=== PATIENT | female | born 1980 | race Caucasian/White ===

== ENCOUNTER 2017-09-09 17:12 | Inpatient (IN) | payer MEDICARE, MEDICAID ==
[~2017-09-09] VITALS: Ht 167.6 cm; Wt 129.0 kg
[~2017-09-09 17:12] MED LIST: naloxone 2mg/2ml inj ONE
[2017-09-09 18:53] LABS: BASOPHILS # (AUTO) 0.1 X10'3 (0-0.2); BASOPHILS % (AUTO) 0.4 % (0-1); EOSINOPHILS # (AUTO) 0.3 X10'3 (0-0.9); EOSINOPHILS % (AUTO) 1.4 % (0-6); HEMATOCRIT 27.8 % (35.0-45.0); HEMOGLOBIN 8.8 g/dl (12.0-16.0); LYMPHOCYTES # (AUTO) 1.7 X10'3 (1.1-4.8); LYMPHOCYTES % (AUTO) 7.7 % (21-51); MEAN CORPUSCULAR HEMOGLOBIN 28.8 PG (27.0-31.0); MEAN CORPUSCULAR HGB CONC 31.6 % (33.0-36.5); MEAN CORPUSCULAR VOLUME 91.1 FL (78-98); MEAN PLATELET VOLUME 6.7 FL (7.4-10.4); MONOCYTES % (AUTO) 4.3 % (2-12); NEUTROPHILS % (AUTO) 86.2 % (42-75); PLATELET COUNT 523 X10'3 (140-440); RED BLOOD COUNT 3.05 X10'6 (4.20-5.60); RED CELL DISTRIBUTION WIDTH 17.8 % (11.5-14.5)
[2017-09-09 19:02] LABS: INR 1.3 INR; PARTIAL THROMBOPLASTIN TIME 34 SECONDS (22-32); PROTHROMBIN TIME 13.3 SECONDS (9.0-12.0)
[2017-09-09 19:07] LABS: ALANINE AMINOTRANSFERASE 22 U/L (12-78); ALBUMIN 1.9 G/DL (3.4-5.0); ALBUMIN/GLOBULIN RATIO 0.3 (1.1-1.5); ALKALINE PHOSPHATASE 464 IU/L (46-116); ANION GAP 10 (8-16); ASPARTATE AMINO TRANSFERASE 14 U/L (10-37); BILIRUBIN,TOTAL 0.4 MG/DL (0.1-1.0); BLOOD UREA NITROGEN 69 MG/DL (7-18); BUN/CREATININE RATIO 10.4 (6.6-38.0); CALCIUM 8.9 MG/DL (8.5-10.1); CHLORIDE 92 MMOL/L (99-107); CREATININE 6.61 MG/DL (0.40-0.90); GLUCOSE 138 MG/DL (70-104); POTASSIUM 5.2 MMOL/L (3.5-5.1); SODIUM 130 MMOL/L (135-145); TOTAL PROTEIN 7.6 G/DL (6.4-8.2); eGFR 7 ML/MIN
[2017-09-09] MEDS ORDERED: ASPI81TA52 PO (19:35)
[2017-09-09] MEDS ORDERED: NYST1000 PO (19:35)
[2017-09-09] MEDS ORDERED: METO-467 PO (19:35)
[2017-09-09] MEDS ORDERED: CALC667T5 PO (19:35)
[2017-09-09] MEDS ORDERED: FOLI0.4T2 PO (19:35)
[2017-09-09] MEDS ORDERED: METO10TA8 PO (19:35)
[2017-09-09] MEDS ORDERED: HEPA500014 SQ (19:35)
[2017-09-09] MEDS ORDERED: LAMO200T2 PO (19:35)
[2017-09-09] MEDS ORDERED: SERT25TA PO (19:40)
[2017-09-09] MEDS ORDERED: SERT100T PO (19:40)
[2017-09-09] MEDS ORDERED: LYR75C PO (19:40)
[2017-09-09] MEDS ORDERED: TORS100T15 PO (19:40)
[2017-09-09] MEDS ORDERED: VALS40TA2 PO (19:53)
[2017-09-09] MEDS ORDERED: INSU100I8 SQ (19:53)
[2017-09-09] MEDS ORDERED: INSU100V9 SQ (19:53)
[2017-09-09] MEDS ORDERED: acetaminophen 325mg tablet PO PRN (20:10)
[2017-09-09] MEDS ORDERED: mag hydrox/Alum hydrox/simeth 30ml oral suspension PO PRN (20:10)
[2017-09-09] MEDS ORDERED: ondansetron/PF 4mg/2ml inj IV PRN (20:10)
[2017-09-09] MEDS ORDERED: magnesium hydroxide 30ml (MOM) UD suspension PO PRN (20:10)
[2017-09-09] MEDS ORDERED: HYDROcodone/acetaminophen 5mg/325mg tablet PO PRN (20:35)
[2017-09-09 20:52] LABS: CREATINE KINASE 20 U/L (26-192)
[2017-09-09 21:14] LABS: HEMOGLOBIN A1C 7.8 % (4.5-6.2)
[2017-09-09 22:15] VITALS: BP 158/66
[2017-09-09 23:00] VITALS: BP_SYST 170; BP_DIAS 83; BP_DIAS 86
[2017-09-10] MEDS: calcium acetate 667mg (PhosLO) capsule PO SCH ×4 (00:44→17:05)
[2017-09-10 03:00] VITALS: BP 139/72
[2017-09-10 04:59] LABS: BASOPHILS % (AUTO) 0.3 % (0-1); EOSINOPHILS % (AUTO) 0.2 % (0-6); HEMATOCRIT 23.2 % (35.0-45.0); HEMOGLOBIN 7.4 g/dl (12.0-16.0); LYMPHOCYTES # (AUTO) 1.3 X10'3 (1.1-4.8); LYMPHOCYTES % (AUTO) 7.2 % (21-51); MEAN CORPUSCULAR HEMOGLOBIN 28.2 PG (27.0-31.0); MEAN CORPUSCULAR HGB CONC 31.8 % (33.0-36.5); MEAN CORPUSCULAR VOLUME 88.6 FL (78-98); MONOCYTES # (AUTO) 0.8 X10'3 (0-0.9); MONOCYTES % (AUTO) 4.3 % (2-12); NEUTROPHILS # (AUTO) 15.3 X10'3 (1.8-7.7); PLATELET COUNT 457 X10'3 (140-440); RED BLOOD COUNT 2.61 X10'6 (4.20-5.60); WHITE BLOOD COUNT 17.4 X10'3 (4.5-11.0)
[2017-09-10 05:16] LABS: INR 1.6 INR; PROTHROMBIN TIME 15.9 SECONDS (9.0-12.0)
[2017-09-10 05:22] LABS: % IRON SATURATION 13 % (11-46); IRON 14 UG/DL (49-151); TOTAL IRON BINDING CAPACITY 110 UG/DL (259-388)
[2017-09-10 05:29] LABS: ALBUMIN 1.5 G/DL (3.4-5.0); ANION GAP 14 (8-16); BLOOD UREA NITROGEN 74 MG/DL (7-18); BUN/CREATININE RATIO 11.3 (6.6-38.0); CALCIUM 7.8 MG/DL (8.5-10.1); CHLORIDE 93 MMOL/L (99-107); CREATININE 6.57 MG/DL (0.40-0.90); GLUCOSE 99 MG/DL (70-104); MAGNESIUM 2.4 MG/DL (1.5-2.4); PHOSPHORUS 7.8 MG/DL (2.3-4.5); POTASSIUM 4.7 MMOL/L (3.5-5.1); SODIUM 134 MMOL/L (135-145); TOTAL CARBON DIOXIDE 27.3 MMOL/L (24-32); eGFR 7 ML/MIN
[2017-09-10 06:00] VITALS: BP 140/52
[2017-09-10] MEDS ORDERED: heparin, porcine 5000 units/ml vial SQ SCH (08:00)
[2017-09-10] MEDS ORDERED: metoprolol tartrate 50mg tablet PO SCH (08:00)
[2017-09-10] MEDS ORDERED: furosemide 40mg tablet PO SCH (08:00)
[2017-09-10] MEDS: nystatin 500,000 unit/5ML UD oral suspension PO SCH ×4 (08:05→20:27)
[2017-09-10] MEDS: folic acid 0.4mg tablet PO SCH (08:05)
[2017-09-10] MEDS: HYDROcodone/acetaminophen 10/325mg tab PO PRN (08:05)
[2017-09-10] MEDS: ampicillin inj 1 GM in normal saline 100ml IV soln 100 ML IV SCH ×2 (08:06→20:26)
[2017-09-10] MEDS: aspirin 81mg tablet.DR PO SCH (08:07)
[2017-09-10] MEDS: meropenem inj 1 GM in normal saline 100ml IV soln 100 ML IV SCH (08:07)
[2017-09-10] MEDS: metolazone 2.5mg tablet PO SCH (08:07)
[2017-09-10] MEDS: valsartan 80mg tablet PO SCH (08:09)
[2017-09-10] MEDS ORDERED: normal saline 1000ml 250 ML IV PRN (09:02)
[2017-09-10] MEDS ORDERED: LIDOcaine 1% (10mg/ml) 2ml vial SQ ONE (09:05)
[2017-09-10] MEDS ORDERED: heparin 1,000 units/ml 10ml inj IV ONE (09:05)
[2017-09-10] MEDS ORDERED: epoetin 20,000 units/ml inj IV ONE (09:05)
[2017-09-10 10:58] LABS: ANISOCYTOSIS 2+; PLATELET ESTIMATE INCREASED; POLYCHROMASIA FEW; STOMATOCYTES 1+; TOTAL CELLS COUNTED 100
[2017-09-10 11:00] VITALS: BP 134/42
[2017-09-10] MEDS ORDERED: CADD PCA waste documentation MC PRN (12:55)
[2017-09-10] MEDS ORDERED: naloxone 0.4 mg/ml inj IV PRN (12:55)
[2017-09-10] MEDS ORDERED: SODIUM THIOSULFATE 12.5 GM/50 ML IV SCH (14:20)
[2017-09-10 15:00] VITALS: BP 145/49
[2017-09-10] MEDS: HYDROmorphone/NS 1 mg/ml CADD 50 ML IV SCH ×6 (15:00→23:00)
[2017-09-10] MEDS ORDERED: NORMAL SALINE IV SCH (15:15)
[2017-09-10] MEDS ORDERED: SODIUM THIOSULFATE IV SCH (15:15)
[2017-09-10] MEDS: furosemide 10 MG/1 ML 10ml inj IV SCH ×2 (15:46→15:48)
[2017-09-10 16:19] LABS: FERRITIN 2014 NG/ML (8-252)
[2017-09-10 19:00] VITALS: BP 137/60
[2017-09-10] MEDS: metoprolol tartrate 12.5mg (1/2 tablet) PO SCH (20:26)
[2017-09-10] MEDS: lactobacillus rhamnosus 10,000 MMU CELLS/CAPSULE PO SCH (20:26)
[2017-09-10] MEDS: lamoTRIgine 100mg tablet PO SCH (20:27)
[2017-09-10] MEDS: sertraline 25mg tablet PO SCH (20:27)
[2017-09-10] MEDS: iron polysaccharide complex 150mg capsule PO SCH (20:52)
[2017-09-10] MEDS ORDERED: QUEtiapine 25mg tablet PO SCH (21:00)
[2017-09-10] MEDS: insulin glargine (Lantus) pen - multi-dose SQ SCH (21:01)
[2017-09-10 23:00] VITALS: BP 114/60
[2017-09-11] VITALS (22 sets, daily range): BP systolic 65–176; BP diastolic 30–89
[2017-09-11] MEDS: HYDROmorphone/NS 1 mg/ml CADD 50 ML IV SCH (01:00)
[2017-09-11] MEDS: furosemide 10 MG/1 ML 10ml inj IV SCH ×3 (01:24→15:08)
[2017-09-11] MEDS ORDERED: propofol 1000mg/100ml bottle 100 ML IV ONE (03:14)
[2017-09-11] MEDS ORDERED: ipratropium/albuterol 3ml nebule NEB PRN (03:20)
[2017-09-11] MEDS ORDERED: etomidate 2mg/ml inj. IV ONE (03:25)
[2017-09-11] MEDS ORDERED: rocuronium 10mg/ml inj IV ONE ×2 (03:25→08:00)
[2017-09-11 04:56] LABS: ABG HCO3 26.7 mmol/L (22.0-26.0); ABG OXYGEN SATURATION 98.6 % (95-98); ABG PCO2 (T) 40.4 mmHg (32.0-45.0); ABG PH (T) 7.433 (7.350-7.450); ALLEN'S TEST Positive; FCOHb 0.8 % (0.5-1.5); FMetHb 0.1 % (0.3-1.12); FO2Hb 97.7 % (94-100); MINUTE VOLUME 8 L/min; PATIENT TEMPERATURE 35.9; PEEP 5 cm H2O; RESPIRATORY RATE 18 b/min; RESPIRATORY RATE (OBSERVED) 18 b/min; TIDAL VOLUME 450 mL; TOTAL HEMOGLOBIN 8.4 G/dl (12.0-16.0)
[2017-09-11] MEDS: propofol 1000mg/100ml bottle 100 ML IV PRN ×2 (07:01→22:33)
[2017-09-11] MEDS ORDERED: etomidate 2mg/ml inj. ONE (08:00)
[2017-09-11] MEDS: folic acid 0.4mg tablet PO SCH ×2 (08:00→08:05)
[2017-09-11] MEDS: aspirin 81mg tablet.DR PO SCH (08:02)
[2017-09-11] MEDS: calcium acetate 667mg (PhosLO) capsule PO SCH ×3 (08:02→17:12)
[2017-09-11] MEDS: metoprolol tartrate 12.5mg (1/2 tablet) PO SCH ×2 (08:02→20:58)
[2017-09-11] MEDS: lactobacillus rhamnosus 10,000 MMU CELLS/CAPSULE PO SCH ×2 (08:03→20:58)
[2017-09-11] MEDS: iron polysaccharide complex 150mg capsule PO SCH ×2 (08:03→20:59)
[2017-09-11] MEDS: valsartan 80mg tablet PO SCH (08:04)
[2017-09-11] MEDS: metolazone 2.5mg tablet PO SCH (08:04)
[2017-09-11] MEDS: nystatin 500,000 unit/5ML UD oral suspension PO SCH ×4 (08:04→21:04)
[2017-09-11] MEDS: famotidine 10mg/ml inj IV SCH ×2 (08:05→20:59)
[2017-09-11] MEDS: meropenem inj 1 GM in normal saline 100ml IV soln 100 ML IV SCH (08:08)
[2017-09-11] MEDS: ampicillin inj 1 GM in normal saline 100ml IV soln 100 ML IV SCH (08:09)
[2017-09-11 08:20] LABS: PROTHROMBIN TIME 20.2 SECONDS (9.0-12.0)
[2017-09-11 08:35] LABS: BASOPHILS % (AUTO) 0.1 % (0-1); EOSINOPHILS % (AUTO) 0.1 % (0-6); HEMATOCRIT 26.4 % (35.0-45.0); HEMOGLOBIN 8.6 g/dl (12.0-16.0); LYMPHOCYTES # (AUTO) 1.3 X10'3 (1.1-4.8); LYMPHOCYTES % (AUTO) 6.1 % (21-51); MEAN CORPUSCULAR HEMOGLOBIN 29.3 PG (27.0-31.0); MEAN CORPUSCULAR HGB CONC 32.6 % (33.0-36.5); MEAN CORPUSCULAR VOLUME 89.8 FL (78-98); MEAN PLATELET VOLUME 7.1 FL (7.4-10.4); MONOCYTES # (AUTO) 0.8 X10'3 (0-0.9); MONOCYTES % (AUTO) 3.6 % (2-12); NEUTROPHILS # (AUTO) 18.8 X10'3 (1.8-7.7); NEUTROPHILS % (AUTO) 90.1 % (42-75); PLATELET COUNT 424 X10'3 (140-440); RED BLOOD COUNT 2.94 X10'6 (4.20-5.60); RED CELL DISTRIBUTION WIDTH 16.4 % (11.5-14.5); WHITE BLOOD COUNT 20.9 X10'3 (4.5-11.0)
[2017-09-11] MEDS ORDERED: heparin 1,000 units/ml 10ml inj IV ONE (09:55)
[2017-09-11] MEDS ORDERED: LIDOcaine 1% (10mg/ml) 2ml vial SQ ONE (09:55)
[2017-09-11] MEDS ORDERED: epoetin 20,000 units/ml inj IV ONE (09:55)
[2017-09-11] MEDS ORDERED: albumin (human) 25% 100ml IV 100 ML IV PRN (09:55)
[2017-09-11 10:57] LABS: ALBUMIN 1.4 G/DL (3.4-5.0); ALBUMIN/GLOBULIN RATIO 0.3 (1.1-1.5); ALKALINE PHOSPHATASE 490 IU/L (46-116); ANION GAP 11 (8-16); BILIRUBIN,TOTAL 0.5 MG/DL (0.1-1.0); BLOOD UREA NITROGEN 46 MG/DL (7-18); BUN/CREATININE RATIO 10.6 (6.6-38.0); CALCIUM 8.1 MG/DL (8.5-10.1); CHLORIDE 97 MMOL/L (99-107); CREATININE 4.35 MG/DL (0.40-0.90); GLUCOSE 138 MG/DL (70-104); MAGNESIUM 2.1 MG/DL (1.5-2.4); PHOSPHORUS 5.4 MG/DL (2.3-4.5); POTASSIUM 4.4 MMOL/L (3.5-5.1); SODIUM 136 MMOL/L (135-145); TOTAL PROTEIN 6.2 G/DL (6.4-8.2); eGFR 11 ML/MIN
[2017-09-11 11:12] LABS: ALANINE AMINOTRANSFERASE 1527 U/L (12-78); ASPARTATE AMINO TRANSFERASE 3346 U/L (10-37)
[2017-09-11] MEDS: NORMAL SALINE IV SCH (12:25)
[2017-09-11] MEDS: SODIUM THIOSULFATE IV SCH (12:25)
[2017-09-11] MEDS: HYDROcodone/acetaminophen 10/325mg tab PO PRN (17:12)
[2017-09-11] MEDS: sertraline 25mg tablet PO SCH (20:58)
[2017-09-11] MEDS: lamoTRIgine 100mg tablet PO SCH (20:58)
[2017-09-11] MEDS: insulin glargine (Lantus) pen - multi-dose SQ SCH (21:00)
[2017-09-12] VITALS (24 sets, daily range): BP systolic 85–118; BP diastolic 45–65
[2017-09-12] MEDS: furosemide 10 MG/1 ML 10ml inj IV SCH ×3 (00:34→16:22)
[2017-09-12] MEDS: HYDROcodone/acetaminophen 10/325mg tab PO PRN (05:31)
[2017-09-12 05:52] LABS: BASOPHILS # (AUTO) 0.1 X10'3 (0-0.2); BASOPHILS % (AUTO) 0.4 % (0-1); EOSINOPHILS # (AUTO) 0.4 X10'3 (0-0.9); EOSINOPHILS % (AUTO) 1.9 % (0-6); HEMATOCRIT 22.8 % (35.0-45.0); HEMOGLOBIN 7.4 g/dl (12.0-16.0); LYMPHOCYTES # (AUTO) 2.5 X10'3 (1.1-4.8); LYMPHOCYTES % (AUTO) 12.3 % (21-51); MEAN CORPUSCULAR HEMOGLOBIN 28.3 PG (27.0-31.0); MEAN CORPUSCULAR HGB CONC 32.6 % (33.0-36.5); MEAN CORPUSCULAR VOLUME 86.9 FL (78-98); MEAN PLATELET VOLUME 7.2 FL (7.4-10.4); MONOCYTES # (AUTO) 0.4 X10'3 (0-0.9); MONOCYTES % (AUTO) 1.8 % (2-12); NEUTROPHILS # (AUTO) 16.7 X10'3 (1.8-7.7); NEUTROPHILS % (AUTO) 83.6 % (42-75); PLATELET COUNT 420 X10'3 (140-440); RED BLOOD COUNT 2.62 X10'6 (4.20-5.60); RED CELL DISTRIBUTION WIDTH 17.1 % (11.5-14.5)
[2017-09-12 05:56] LABS: ABG BASE EXCESS 3.2 mmol/L (-2.0-3.0); ABG HCO3 26.5 mmol/L (22.0-26.0); ABG OXYGEN SATURATION 97.6 % (95-98); ABG PCO2 (T) 34.6 mmHg (32.0-45.0); ABG PH (T) 7.501 (7.350-7.450); ABG PO2 (T) 99.8 mmHg (83-108); ALLEN'S TEST Positive; FCOHb 0.3 % (0.5-1.5); FMetHb 0.2 % (0.3-1.12); FO2Hb 97.1 % (94-100); MINUTE VOLUME 9 L/min; PATIENT TEMPERATURE 36.7; PEEP 5 cm H2O; RESPIRATORY RATE 18 b/min; RESPIRATORY RATE (OBSERVED) 18 b/min; TIDAL VOLUME 450 mL; TOTAL HEMOGLOBIN 8.2 G/dl (12.0-16.0)
[2017-09-12 05:56] LABS: PROTHROMBIN TIME 19.8 SECONDS (9.0-12.0)
[2017-09-12 06:23] LABS: ALBUMIN 1.2 G/DL (3.4-5.0); ANION GAP 14 (8-16); BLOOD UREA NITROGEN 28 MG/DL (7-18); BUN/CREATININE RATIO 9.4 (6.6-38.0); CALCIUM 7.9 MG/DL (8.5-10.1); CHLORIDE 100 MMOL/L (99-107); CREATININE 2.98 MG/DL (0.40-0.90); GLUCOSE 88 MG/DL (70-104); MAGNESIUM 1.7 MG/DL (1.5-2.4); PHOSPHORUS 2.4 MG/DL (2.3-4.5); POTASSIUM 3.2 MMOL/L (3.5-5.1); SODIUM 140 MMOL/L (135-145); TOTAL CARBON DIOXIDE 26.4 MMOL/L (24-32); eGFR 18 ML/MIN
[2017-09-12] MEDS: aspirin 81mg tablet.DR PO SCH (07:35)
[2017-09-12] MEDS: folic acid 0.4mg tablet PO SCH (07:36)
[2017-09-12] MEDS: metoprolol tartrate 12.5mg (1/2 tablet) PO SCH ×2 (07:36→20:58)
[2017-09-12] MEDS: calcium acetate 667mg (PhosLO) capsule PO SCH ×3 (07:36→17:24)
[2017-09-12] MEDS: nystatin 500,000 unit/5ML UD oral suspension PO SCH ×4 (07:36→20:58)
[2017-09-12] MEDS: famotidine 10mg/ml inj IV SCH ×2 (07:37→20:57)
[2017-09-12] MEDS: mineral oil/petrolatum ophthal oint EACHEYE SCH ×3 (07:37→20:00)
[2017-09-12] MEDS: meropenem inj 500 MG in normal saline 100ml IV soln 100 ML IV SCH (07:37)
[2017-09-12] MEDS: lactobacillus rhamnosus 10,000 MMU CELLS/CAPSULE PO SCH ×2 (07:53→20:57)
[2017-09-12] MEDS: metolazone 2.5mg tablet PO SCH (07:53)
[2017-09-12] MEDS: valsartan 80mg tablet PO SCH (07:53)
[2017-09-12] MEDS: iron polysaccharide complex 150mg capsule PO SCH ×2 (07:59→20:57)
[2017-09-12] MEDS ORDERED: naloxone 0.4 mg/ml inj IV PRN (08:40)
[2017-09-12] MEDS ORDERED: CADD PCA waste documentation MC PRN (08:40)
[2017-09-12] MEDS ORDERED: racepinephrine 11.25mg/0.5ml nebule NEB PRN (08:40)
[2017-09-12] MEDS ORDERED: ipratropium/albuterol 3ml nebule NEB PRN (08:40)
[2017-09-12] MEDS: ipratropium/albuterol 3ml nebule NEB SCH ×4 (09:00→20:50)
[2017-09-12] MEDS ORDERED: SODIUM THIOSULFATE IV SCH (10:00)
[2017-09-12] MEDS ORDERED: NORMAL SALINE IV SCH (10:00)
[2017-09-12] MEDS: HYDROmorphone/NS 1 mg/ml CADD 50 ML IV SCH ×8 (11:12→23:00)
[2017-09-12] MEDS: sertraline 25mg tablet PO SCH (20:57)
[2017-09-12] MEDS: lamoTRIgine 100mg tablet PO SCH (20:57)
[2017-09-12] MEDS: insulin glargine (Lantus) pen - multi-dose SQ SCH (21:00)
[2017-09-13] VITALS (21 sets, daily range): BP systolic 82–141; BP diastolic 48–72
[2017-09-13] MEDS: furosemide 10 MG/1 ML 10ml inj IV SCH ×3 (00:59→18:37)
[2017-09-13] MEDS: HYDROmorphone/NS 1 mg/ml CADD 50 ML IV SCH ×12 (01:00→23:00)
[2017-09-13] MEDS: mineral oil/petrolatum ophthal oint EACHEYE SCH (02:00)
[2017-09-13] MEDS: ipratropium/albuterol 3ml nebule NEB SCH ×4 (02:57→20:25)
[2017-09-13 05:41] LABS: BASOPHILS # (AUTO) 0.1 X10'3 (0-0.2); BASOPHILS % (AUTO) 0.4 % (0-1); EOSINOPHILS # (AUTO) 0.4 X10'3 (0-0.9); EOSINOPHILS % (AUTO) 2.2 % (0-6); HEMATOCRIT 22.1 % (35.0-45.0); LYMPHOCYTES # (AUTO) 1.8 X10'3 (1.1-4.8); LYMPHOCYTES % (AUTO) 10.7 % (21-51); MEAN CORPUSCULAR HEMOGLOBIN 28.2 PG (27.0-31.0); MEAN CORPUSCULAR HGB CONC 31.8 % (33.0-36.5); MEAN CORPUSCULAR VOLUME 88.4 FL (78-98); MEAN PLATELET VOLUME 6.9 FL (7.4-10.4); MONOCYTES # (AUTO) 0.8 X10'3 (0-0.9); MONOCYTES % (AUTO) 4.6 % (2-12); NEUTROPHILS # (AUTO) 13.5 X10'3 (1.8-7.7); NEUTROPHILS % (AUTO) 82.1 % (42-75); PLATELET COUNT 384 X10'3 (140-440); RED CELL DISTRIBUTION WIDTH 17.2 % (11.5-14.5); WHITE BLOOD COUNT 16.5 X10'3 (4.5-11.0)
[2017-09-13 05:45] LABS: INR 1.6 INR
[2017-09-13 06:24] LABS: ALBUMIN 1.3 G/DL (3.4-5.0); ANION GAP 14 (8-16); BLOOD UREA NITROGEN 35 MG/DL (7-18); BUN/CREATININE RATIO 9.3 (6.6-38.0); CALCIUM 7.8 MG/DL (8.5-10.1); CHLORIDE 96 MMOL/L (99-107); CREATININE 3.76 MG/DL (0.40-0.90); GLUCOSE 106 MG/DL (70-104); MAGNESIUM 1.8 MG/DL (1.5-2.4); PHOSPHORUS 3.8 MG/DL (2.3-4.5); POTASSIUM 3.7 MMOL/L (3.5-5.1); SODIUM 137 MMOL/L (135-145); TOTAL CARBON DIOXIDE 27.2 MMOL/L (24-32); eGFR 13 ML/MIN
[2017-09-13] MEDS ORDERED: phytonadione inj. 5 MG in normal saline 100ml IV soln 99.5 ML IV ONE (08:00)
[2017-09-13] MEDS: metoprolol tartrate 12.5mg (1/2 tablet) PO SCH ×2 (08:00→20:59)
[2017-09-13] MEDS: nystatin 500,000 unit/5ML UD oral suspension PO SCH ×4 (08:15→21:01)
[2017-09-13] MEDS: famotidine 10mg/ml inj IV SCH (08:16)
[2017-09-13] MEDS: calcium acetate 667mg (PhosLO) capsule PO SCH ×3 (08:17→18:37)
[2017-09-13] MEDS: metolazone 2.5mg tablet PO SCH (08:17)
[2017-09-13] MEDS: lactobacillus rhamnosus 10,000 MMU CELLS/CAPSULE PO SCH ×2 (08:17→20:59)
[2017-09-13] MEDS: meropenem inj 500 MG in normal saline 100ml IV soln 100 ML IV SCH (08:17)
[2017-09-13] MEDS: iron polysaccharide complex 150mg capsule PO SCH ×2 (08:17→20:59)
[2017-09-13] MEDS: aspirin 81mg tablet.DR PO SCH (08:17)
[2017-09-13] MEDS: folic acid 0.4mg tablet PO SCH (08:17)
[2017-09-13 11:08] LABS: HBSAG SCREEN Negative (Negative)
[2017-09-13] MEDS: famotidine/PF 10 mg/ml inj IV SCH (20:59)
[2017-09-13] MEDS: insulin glargine (Lantus) pen - multi-dose SQ SCH (21:00)
[2017-09-13] MEDS: sertraline 25mg tablet PO SCH (21:01)
[2017-09-13] MEDS: lamoTRIgine 100mg tablet PO SCH (21:01)
[2017-09-13] MEDS ORDERED: benzocaine/menthol oral lozeng 1 EACH BOX MM PRN (22:45)
[2017-09-14] VITALS (23 sets, daily range): BP systolic 95–161; BP diastolic 46–69
[2017-09-14] MEDS: furosemide 10 MG/1 ML 10ml inj IV SCH ×4 (00:34→23:33)
[2017-09-14] MEDS: HYDROmorphone/NS 1 mg/ml CADD 50 ML IV SCH ×15 (01:00→23:00)
[2017-09-14] MEDS: ipratropium/albuterol 3ml nebule NEB SCH ×4 (02:25→20:20)
[2017-09-14] MEDS ORDERED: magnesium hydroxide 30ml (MOM) UD suspension PO ONE (04:40)
[2017-09-14 04:58] LABS: INR 1.3 INR; PROTHROMBIN TIME 13.3 SECONDS (9.0-12.0)
[2017-09-14 05:05] LABS: BASOPHILS # (AUTO) 0.1 X10'3 (0-0.2); BASOPHILS % (AUTO) 0.4 % (0-1); EOSINOPHILS # (AUTO) 0.2 X10'3 (0-0.9); EOSINOPHILS % (AUTO) 1.6 % (0-6); HEMOGLOBIN 7.1 g/dl (12.0-16.0); LYMPHOCYTES # (AUTO) 1.7 X10'3 (1.1-4.8); LYMPHOCYTES % (AUTO) 10.9 % (21-51); MEAN CORPUSCULAR HEMOGLOBIN 28.6 PG (27.0-31.0); MEAN CORPUSCULAR HGB CONC 32.6 % (33.0-36.5); MEAN CORPUSCULAR VOLUME 87.7 FL (78-98); MEAN PLATELET VOLUME 7.2 FL (7.4-10.4); MONOCYTES # (AUTO) 0.9 X10'3 (0-0.9); MONOCYTES % (AUTO) 6.1 % (2-12); NEUTROPHILS # (AUTO) 12.3 X10'3 (1.8-7.7); PLATELET COUNT 356 X10'3 (140-440); RED BLOOD COUNT 2.48 X10'6 (4.20-5.60); RED CELL DISTRIBUTION WIDTH 17.1 % (11.5-14.5); WHITE BLOOD COUNT 15.2 X10'3 (4.5-11.0)
[2017-09-14 05:07] LABS: HEMATOCRIT 21.8 % (35.0-45.0)
[2017-09-14 05:08] LABS: ALANINE AMINOTRANSFERASE 416 U/L (12-78); ALBUMIN 1.4 G/DL (3.4-5.0); ALBUMIN/GLOBULIN RATIO 0.3 (1.1-1.5); ALKALINE PHOSPHATASE 460 IU/L (46-116); ANION GAP 13 (8-16); ASPARTATE AMINO TRANSFERASE 70 U/L (10-37); BILIRUBIN,TOTAL 0.6 MG/DL (0.1-1.0); BLOOD UREA NITROGEN 44 MG/DL (7-18); BUN/CREATININE RATIO 9.9 (6.6-38.0); CALCIUM 7.5 MG/DL (8.5-10.1); CHLORIDE 92 MMOL/L (99-107); CREATININE 4.45 MG/DL (0.40-0.90); GLUCOSE 112 MG/DL (70-104); PHOSPHORUS 4.4 MG/DL (2.3-4.5); POTASSIUM 4.5 MMOL/L (3.5-5.1); SODIUM 131 MMOL/L (135-145); TOTAL CARBON DIOXIDE 25.8 MMOL/L (24-32); TOTAL PROTEIN 5.9 G/DL (6.4-8.2); eGFR 11 ML/MIN
[2017-09-14] MEDS: lactobacillus rhamnosus 10,000 MMU CELLS/CAPSULE PO SCH ×2 (07:52→19:42)
[2017-09-14] MEDS: famotidine/PF 10 mg/ml inj IV SCH (07:52)
[2017-09-14] MEDS: folic acid 0.4mg tablet PO SCH (07:52)
[2017-09-14] MEDS: aspirin 81mg tablet.DR PO SCH (07:52)
[2017-09-14] MEDS: iron polysaccharide complex 150mg capsule PO SCH ×2 (07:52→19:41)
[2017-09-14] MEDS: meropenem inj 500 MG in normal saline 100ml IV soln 100 ML IV SCH (07:53)
[2017-09-14] MEDS ORDERED: LIDOcaine 1% (10mg/ml) 2ml vial SQ ONE (08:00)
[2017-09-14] MEDS ORDERED: heparin 1,000 units/ml 10ml inj IV ONE (08:00)
[2017-09-14] MEDS: metoprolol tartrate 12.5mg (1/2 tablet) PO SCH ×2 (08:00→19:42)
[2017-09-14] MEDS: metolazone 2.5mg tablet PO SCH (08:00)
[2017-09-14] MEDS ORDERED: epoetin 20,000 units/ml inj IV ONE (08:00)
[2017-09-14] MEDS: nystatin 500,000 unit/5ML UD oral suspension PO SCH ×5 (08:00→20:48)
[2017-09-14] MEDS ORDERED: albumin (human) 25% 100ml IV 100 ML IV PRN (08:00)
[2017-09-14] MEDS: calcium acetate 667mg (PhosLO) capsule PO SCH ×4 (08:09→18:36)
[2017-09-14 09:57] LABS: OCCULT BLOOD STOOL NEGATIVE (Neg)
[2017-09-14] MEDS: NORMAL SALINE IV SCH (11:12)
[2017-09-14] MEDS: SODIUM THIOSULFATE IV SCH (11:12)
[2017-09-14] MEDS ORDERED: VANCOMYCIN LEVEL IV ONE (12:30)
[2017-09-14] MEDS: HYDROcodone/acetaminophen 10/325mg tab PO PRN ×2 (13:44→22:12)
[2017-09-14] MEDS: famotidine 20mg tablet PO SCH (19:42)
[2017-09-14 20:28] LABS: HEMATOCRIT 25.4 % (35.0-45.0); HEMOGLOBIN 8.1 g/dl (12.0-16.0); MEAN CORPUSCULAR HEMOGLOBIN 27.9 PG (27.0-31.0); MEAN CORPUSCULAR VOLUME 87.3 FL (78-98); MEAN PLATELET VOLUME 7.2 FL (7.4-10.4); PLATELET COUNT 321 X10'3 (140-440); RED BLOOD COUNT 2.91 X10'6 (4.20-5.60); RED CELL DISTRIBUTION WIDTH 16.6 % (11.5-14.5); WHITE BLOOD COUNT 11.9 X10'3 (4.5-11.0)
[2017-09-14] MEDS: sertraline 25mg tablet PO SCH (20:48)
[2017-09-14] MEDS: lamoTRIgine 100mg tablet PO SCH (20:48)
[2017-09-14] MEDS: insulin glargine (Lantus) pen - multi-dose SQ SCH (21:00)
[2017-09-15] MEDS: HYDROmorphone/NS 1 mg/ml CADD 50 ML IV SCH ×12 (01:00→23:00)
[2017-09-15] MEDS: ipratropium/albuterol 3ml nebule NEB SCH ×4 (02:22→20:22)
[2017-09-15 03:00] VITALS: BP 142/55
[2017-09-15] MEDS: VANCOMYCIN LEVEL IV SCH (03:00)
[2017-09-15 06:00] VITALS: BP 132/51
[2017-09-15 06:19] LABS: BASOPHILS % (AUTO) 0.2 % (0-1); EOSINOPHILS # (AUTO) 0.3 X10'3 (0-0.9); HEMOGLOBIN 8.1 g/dl (12.0-16.0); LYMPHOCYTES # (AUTO) 1.5 X10'3 (1.1-4.8); MEAN CORPUSCULAR HEMOGLOBIN 28.4 PG (27.0-31.0); MEAN CORPUSCULAR HGB CONC 32.3 % (33.0-36.5); MEAN PLATELET VOLUME 7.1 FL (7.4-10.4); MONOCYTES % (AUTO) 7.8 % (2-12); PLATELET COUNT 324 X10'3 (140-440); RED BLOOD COUNT 2.84 X10'6 (4.20-5.60); RED CELL DISTRIBUTION WIDTH 16.9 % (11.5-14.5); WHITE BLOOD COUNT 12.8 X10'3 (4.5-11.0)
[2017-09-15 06:38] LABS: ALANINE AMINOTRANSFERASE 254 U/L (12-78); ALBUMIN 1.5 G/DL (3.4-5.0); ALBUMIN/GLOBULIN RATIO 0.3 (1.1-1.5); ALKALINE PHOSPHATASE 445 IU/L (46-116); ANION GAP 11 (8-16); ASPARTATE AMINO TRANSFERASE 30 U/L (10-37); BILIRUBIN,TOTAL 0.5 MG/DL (0.1-1.0); BLOOD UREA NITROGEN 25 MG/DL (7-18); BUN/CREATININE RATIO 7.6 (6.6-38.0); CALCIUM 8.2 MG/DL (8.5-10.1); CHLORIDE 94 MMOL/L (99-107); CREATININE 3.29 MG/DL (0.40-0.90); GLUCOSE 119 MG/DL (70-104); SODIUM 133 MMOL/L (135-145); TOTAL CARBON DIOXIDE 27.6 MMOL/L (24-32); TOTAL PROTEIN 6.2 G/DL (6.4-8.2); VANCOMYCIN,RANDOM 29.7 UG/ML; eGFR 16 ML/MIN
[2017-09-15] MEDS: nystatin 500,000 unit/5ML UD oral suspension PO SCH ×4 (07:15→21:00)
[2017-09-15] MEDS: calcium acetate 667mg (PhosLO) capsule PO SCH ×3 (07:15→16:46)
[2017-09-15] MEDS: aspirin 81mg tablet.DR PO SCH (07:15)
[2017-09-15] MEDS: metolazone 2.5mg tablet PO SCH (07:15)
[2017-09-15] MEDS: metoprolol tartrate 12.5mg (1/2 tablet) PO SCH ×2 (07:16→21:39)
[2017-09-15] MEDS: lactobacillus rhamnosus 10,000 MMU CELLS/CAPSULE PO SCH ×2 (07:16→21:39)
[2017-09-15] MEDS: folic acid 0.4mg tablet PO SCH (07:16)
[2017-09-15] MEDS: famotidine 20mg tablet PO SCH ×2 (07:16→21:38)
[2017-09-15] MEDS: meropenem inj 500 MG in normal saline 100ml IV soln 100 ML IV SCH (08:15)
[2017-09-15] MEDS: iron polysaccharide complex 150mg capsule PO SCH ×2 (08:15→21:38)
[2017-09-15] MEDS: furosemide 10 MG/1 ML 10ml inj IV SCH ×2 (09:48→16:46)
[2017-09-15 11:00] VITALS: BP 154/62
[2017-09-15 15:00] VITALS: BP 157/56
[2017-09-15 19:00] VITALS: BP 148/39
[2017-09-15] MEDS: insulin glargine (Lantus) pen - multi-dose SQ SCH (21:00)
[2017-09-15] MEDS: sertraline 25mg tablet PO SCH (21:38)
[2017-09-15] MEDS: lamoTRIgine 100mg tablet PO SCH (21:39)
[2017-09-15 23:00] VITALS: BP 145/41
[2017-09-16] MEDS: furosemide 10 MG/1 ML 10ml inj IV SCH ×3 (00:19→15:33)
[2017-09-16] MEDS: HYDROmorphone/NS 1 mg/ml CADD 50 ML IV SCH ×12 (00:19→23:00)
[2017-09-16] MEDS: ipratropium/albuterol 3ml nebule NEB SCH ×4 (02:28→21:00)
[2017-09-16 03:00] VITALS: BP 145/47
[2017-09-16] MEDS: VANCOMYCIN LEVEL IV SCH (03:00)
[2017-09-16 05:55] LABS: BASOPHILS # (AUTO) 0.1 X10'3 (0-0.2); BASOPHILS % (AUTO) 0.5 % (0-1); EOSINOPHILS # (AUTO) 0.3 X10'3 (0-0.9); EOSINOPHILS % (AUTO) 1.8 % (0-6); HEMOGLOBIN 8.1 g/dl (12.0-16.0); LYMPHOCYTES # (AUTO) 1.4 X10'3 (1.1-4.8); LYMPHOCYTES % (AUTO) 9.3 % (21-51); MEAN CORPUSCULAR HEMOGLOBIN 28.5 PG (27.0-31.0); MEAN CORPUSCULAR HGB CONC 32.4 % (33.0-36.5); MEAN CORPUSCULAR VOLUME 87.9 FL (78-98); MEAN PLATELET VOLUME 7.1 FL (7.4-10.4); MONOCYTES # (AUTO) 1.2 X10'3 (0-0.9); MONOCYTES % (AUTO) 7.9 % (2-12); NEUTROPHILS # (AUTO) 11.8 X10'3 (1.8-7.7); NEUTROPHILS % (AUTO) 80.5 % (42-75); PLATELET COUNT 343 X10'3 (140-440); RED BLOOD COUNT 2.85 X10'6 (4.20-5.60); RED CELL DISTRIBUTION WIDTH 17.1 % (11.5-14.5); WHITE BLOOD COUNT 14.6 X10'3 (4.5-11.0)
[2017-09-16 06:16] LABS: ALANINE AMINOTRANSFERASE 172 U/L (12-78); ALBUMIN 1.5 G/DL (3.4-5.0); ALBUMIN/GLOBULIN RATIO 0.3 (1.1-1.5); ALKALINE PHOSPHATASE 387 IU/L (46-116); ANION GAP 10 (8-16); ASPARTATE AMINO TRANSFERASE 20 U/L (10-37); BILIRUBIN,TOTAL 0.5 MG/DL (0.1-1.0); BLOOD UREA NITROGEN 33 MG/DL (7-18); BUN/CREATININE RATIO 8.4 (6.6-38.0); CALCIUM 8.4 MG/DL (8.5-10.1); CHLORIDE 92 MMOL/L (99-107); CREATININE 3.93 MG/DL (0.40-0.90); GLUCOSE 109 MG/DL (70-104); POTASSIUM 4.2 MMOL/L (3.5-5.1); SODIUM 128 MMOL/L (135-145); TOTAL CARBON DIOXIDE 26.2 MMOL/L (24-32); TOTAL PROTEIN 6.4 G/DL (6.4-8.2); VANCOMYCIN,RANDOM 26.3 UG/ML; eGFR 13 ML/MIN
[2017-09-16 07:00] VITALS: BP 154/56
[2017-09-16] MEDS: meropenem inj 500 MG in normal saline 100ml IV soln 100 ML IV SCH (07:09)
[2017-09-16] MEDS: nystatin 500,000 unit/5ML UD oral suspension PO SCH ×4 (07:09→20:19)
[2017-09-16] MEDS: iron polysaccharide complex 150mg capsule PO SCH ×2 (07:09→20:20)
[2017-09-16] MEDS: lactobacillus rhamnosus 10,000 MMU CELLS/CAPSULE PO SCH ×2 (07:09→20:20)
[2017-09-16] MEDS: aspirin 81mg tablet.DR PO SCH (07:09)
[2017-09-16] MEDS: famotidine 20mg tablet PO SCH ×2 (07:09→20:20)
[2017-09-16] MEDS: folic acid 0.4mg tablet PO SCH (07:09)
[2017-09-16] MEDS: calcium acetate 667mg (PhosLO) capsule PO SCH ×3 (07:09→17:57)
[2017-09-16] MEDS: metoprolol tartrate 12.5mg (1/2 tablet) PO SCH ×2 (07:22→20:20)
[2017-09-16] MEDS: metolazone 2.5mg tablet PO SCH (07:22)
[2017-09-16] MEDS ORDERED: LIDOcaine 1% (10mg/ml) 2ml vial SQ ONE (08:00)
[2017-09-16] MEDS ORDERED: heparin 1,000 units/ml 10ml inj IV ONE (08:00)
[2017-09-16] MEDS ORDERED: epoetin 20,000 units/ml inj IV ONE (08:00)
[2017-09-16] MEDS ORDERED: normal saline 1000ml 250 ML IV PRN (08:00)
[2017-09-16 11:00] VITALS: BP_SYST 120; BP_SYST 149; BP_DIAS 53; BP_DIAS 64
[2017-09-16] MEDS: SODIUM THIOSULFATE IV SCH (14:38)
[2017-09-16] MEDS: NORMAL SALINE IV SCH (14:38)
[2017-09-16] MEDS ORDERED: FAMO20TA8 PO (16:34)
[2017-09-16] MEDS ORDERED: IPRA3AMP9 NEB ×2 (16:34)
[2017-09-16] MEDS ORDERED: HYDR-3972 PO (16:34)
[2017-09-16] MEDS ORDERED: SEVE800T8 PO (16:34)
[2017-09-16] MEDS ORDERED: IRON150C13 PO (16:34)
[2017-09-16] MEDS ORDERED: MERO1VIA IV (16:35)
[2017-09-16] MEDS ORDERED: [UNRECOGNIZED DRUG - CODE] IV (16:35)
[2017-09-16] MEDS ORDERED: [UNRECOGNIZED DRUG - CODE] IV (16:35)
[2017-09-16] MEDS ORDERED: VANC1PLA9 IV (16:35)
[2017-09-16] MEDS ORDERED: FOLI1CAP PO (16:35)
[2017-09-16 19:00] VITALS: BP 150/73
[2017-09-16] MEDS: sertraline 25mg tablet PO SCH (20:19)
[2017-09-16] MEDS: lamoTRIgine 100mg tablet PO SCH (20:19)
[2017-09-16] MEDS: insulin glargine (Lantus) pen - multi-dose SQ SCH (21:00)
[2017-09-16 23:00] VITALS: BP 165/64
[2017-09-17] MEDS: furosemide 10 MG/1 ML 10ml inj IV SCH (00:51)
[2017-09-17] MEDS: HYDROmorphone/NS 1 mg/ml CADD 50 ML IV SCH ×2 (01:00→03:00)
[2017-09-17 03:00] VITALS: BP 147/38
== END 2017-09-17 03:24 | DRG 91 ==
LOC: ER 17:13 → ED HOLD 20:08 → PCU 3S 22:15 → CICU 2S 09-11 03:08 → PCU 3S 09-12 22:04 → CICU 2S 09-12 22:06 → PCU 3S 09-14 17:45
PROVIDERS: ADMIT Internal Medicine Critical Care Medicine; ATTEND Internal Medicine Critical Care Medicine
PROC: 5A09357 Assistance with Respiratory Ventilation, Less than 24 Consecutive Hours, Continuous Positive Airway Pressure (ICD-10-PCS; 2017-09-10)
PROC: 5A1D70Z Performance of Urinary Filtration, Intermittent, Less than 6 Hours Per Day (ICD-10-PCS; 2017-09-10)
PROC: 5A1945Z Respiratory Ventilation, 24-96 Consecutive Hours (ICD-10-PCS; principal; 2017-09-11)
PROC: 5A1D70Z Performance of Urinary Filtration, Intermittent, Less than 6 Hours Per Day (ICD-10-PCS; 2017-09-11)
PROC: 30233N1 Transfusion of Nonautologous Red Blood Cells into Peripheral Vein, Percutaneous Approach (ICD-10-PCS; 2017-09-14)
PROC: 5A1D70Z Performance of Urinary Filtration, Intermittent, Less than 6 Hours Per Day (ICD-10-PCS; 2017-09-14)
PROC: 5A1D70Z Performance of Urinary Filtration, Intermittent, Less than 6 Hours Per Day (ICD-10-PCS; 2017-09-16)
DX: G92 Toxic encephalopathy (principal); K72.00 Acute and subacute hepatic failure without coma; J96.01 Acute respiratory failure with hypoxia; N18.6 End stage renal disease; I12.0 Hypertensive chronic kidney disease with stage 5 chronic kidney disease or end stage renal disease; N17.9 Acute kidney failure, unspecified; E87.1 Hypo-osmolality and hyponatremia; Z68.42 Body mass index [BMI] 45.0-49.9, adult; I95.9 Hypotension, unspecified; E87.5 Hyperkalemia; E11.42 Type 2 diabetes mellitus with diabetic polyneuropathy; R62.7 Adult failure to thrive; G47.33 Obstructive sleep apnea (adult) (pediatric); T40.605A Adverse effect of unspecified narcotics, initial encounter; D50.9 Iron deficiency anemia, unspecified; E11.22 Type 2 diabetes mellitus with diabetic chronic kidney disease; S31.109A Unspecified open wound of abdominal wall, unspecified quadrant without penetration into peritoneal cavity, initial encounter; E11.51 Type 2 diabetes mellitus with diabetic peripheral angiopathy without gangrene; E78.5 Hyperlipidemia, unspecified; E83.59 Other disorders of calcium metabolism; E66.01 Morbid (severe) obesity due to excess calories; F32.9 Major depressive disorder, single episode, unspecified; Z99.2 Dependence on renal dialysis; Z79.82 Long term (current) use of aspirin; Z79.899 Other long term (current) drug therapy; Z88.8 Allergy status to other drugs, medicaments and biological substances; Y92.238 Other place in hospital as the place of occurrence of the external cause
CPT/HCPCS: 36415; 36600; 70450; 71045; 80048; 80053; 80202; 82272; 82550; 82728; 82803; 82948; 83036; 83540; 83550; 83605; 83735; 84100; 84145; 85018; 85025; 85027; 85610; 85730; 86644; 86885; 86900; 86901; 86920; 86945; 87040; 87070; 87340; 92950; 93005; 94002; 94003; 94640; 94760; 97110; 97161; 99291; A6209; A6212; A6213; A6253; A6402; A6449; G0257; J0290; J0885; J1170; J1644; J1815; J1940; J2185; J2310; J2704; J3370; J3430; J3490; J7030; P9016

== ENCOUNTER 2017-10-13 14:41 | Inpatient (IN) | payer MEDICARE, MEDICAID ==
[~2017-10-13] VITALS: Ht 167.6 cm; Wt 126.5 kg
[2017-10-13] VITALS (10 sets, daily range): BP systolic 103–127; BP diastolic 66–86
[~2017-10-13 14:41] MED LIST changes: +ASPI81TA52 PO; +FAMO20TA8 PO; +FOLI0.4T2 PO; +FOLI1CAP PO; +HYDR-3972 PO; +INSU100I8 SQ; +INSU100V9 SQ; +IPRA3AMP9 NEB; +IRON150C13 PO; +LAMO200T2 PO; +LYR75C PO; +MERO1VIA IV; +METO-467 PO; +METO10TA8 PO; +NYST1000 PO; +SERT25TA PO; +SEVE800T8 PO; +TORS100T15 PO; +VANC1PLA9 IV; +[UNRECOGNIZED DRUG - CODE] IV; +[UNRECOGNIZED DRUG - CODE] IV; -naloxone 2mg/2ml inj ONE
[2017-10-13] MEDS ORDERED: ondansetron/PF 4mg/2ml inj IV PRN (15:10)
[2017-10-13] MEDS ORDERED: albuterol 2.5 MG/3 ML nebule NEB PRN (15:10)
[2017-10-13] MEDS ORDERED: acetaminophen 325mg tablet PO PRN ×2 (15:10)
[2017-10-13] MEDS ORDERED: morphine 4 MG/ML inj SYRINge IV PRN ×2 (15:10)
[2017-10-13] MEDS ORDERED: morphine 2 MG/ML inj. syringe IV PRN (15:38)
[2017-10-13] MEDS ORDERED: albumin (human) 25% 100 ML IV solution IV ONE (15:45)
[2017-10-13] MEDS ORDERED: NORepinephrine 8mg/ 250ml NS 250 ML IV PRN (15:46)
[2017-10-13] MEDS: hydrocortisone sod succ/PF 100mg/2ml inj. IV SCH ×2 (16:46→21:21)
[2017-10-13] MEDS: pantoprazole 40 MG vial IV SCH (16:55)
[2017-10-13 17:02] LABS: ALBUMIN 2.6 G/DL (3.4-5.0); ANION GAP 19 (8-16); BLOOD UREA NITROGEN 43 MG/DL (7-18); BUN/CREATININE RATIO 12.3 (6.6-38.0); CALCIUM 9.3 MG/DL (8.5-10.1); CHLORIDE 103 MMOL/L (99-107); GLUCOSE 167 MG/DL (70-104); PHOSPHORUS 2.5 MG/DL (2.3-4.5); POTASSIUM 3.5 MMOL/L (3.5-5.1); SODIUM 145 MMOL/L (135-145); TOTAL CARBON DIOXIDE 22.9 MMOL/L (24-32); eGFR 15 ML/MIN
[2017-10-13 17:28] LABS: D-DIMER 6.68 MG/L FEU (0-0.50)
[2017-10-13 19:36] LABS: ABG BASE EXCESS -5.6 mmol/L (-2.0-3.0); ABG OXYGEN SATURATION 94.2 % (95-98); ABG PCO2 (T) 45.6 mmHg (32.0-45.0); ABG PH (T) 7.277 (7.350-7.450); ABG PO2 (T) 79.9 mmHg (83-108); FCOHb 0.5 % (0.5-1.5); FLOW 4 L/min; FMetHb 0.3 % (0.3-1.12); FO2Hb 93.4 % (94-100); PATIENT TEMPERATURE 36.4; RESPIRATORY RATE (OBSERVED) 22 b/min; TOTAL HEMOGLOBIN 7.8 G/dl (12.0-16.0)
[2017-10-13] MEDS: heparin, porcine 5000 units/ml vial SQ SCH (20:00)
[2017-10-13] MEDS: diatr meglu/diatrizoate 30ml oral sol.-(3 dose) bottle PO SCH (21:21)
[2017-10-14] VITALS (27 sets, daily range): BP systolic 113–177; BP diastolic 56–97
[2017-10-14] MEDS: hydrocortisone sod succ/PF 100mg/2ml inj. IV SCH ×4 (01:46→20:55)
[2017-10-14 03:07] LABS: BASOPHILS % (AUTO) 0.1 % (0-1); EOSINOPHILS # (AUTO) 0.4 X10'3 (0-0.9); EOSINOPHILS % (AUTO) 1.4 % (0-6); HEMOGLOBIN 9.1 g/dl (12.0-16.0); LYMPHOCYTES # (AUTO) 0.9 X10'3 (1.1-4.8); LYMPHOCYTES % (AUTO) 3.5 % (21-51); MEAN CORPUSCULAR HEMOGLOBIN 27.3 PG (27.0-31.0); MEAN CORPUSCULAR HGB CONC 31.4 % (33.0-36.5); MEAN CORPUSCULAR VOLUME 86.9 FL (78-98); MEAN PLATELET VOLUME 8.5 FL (7.4-10.4); MONOCYTES # (AUTO) 0.5 X10'3 (0-0.9); MONOCYTES % (AUTO) 1.8 % (2-12); NEUTROPHILS # (AUTO) 24.3 X10'3 (1.8-7.7); NEUTROPHILS % (AUTO) 93.2 % (42-75); PLATELET COUNT 279 X10'3 (140-440); RED BLOOD COUNT 3.34 X10'6 (4.20-5.60); RED CELL DISTRIBUTION WIDTH 20.7 % (11.5-14.5)
[2017-10-14 03:24] LABS: ALANINE AMINOTRANSFERASE 11 U/L (12-78); ALBUMIN 2.6 G/DL (3.4-5.0); ALBUMIN/GLOBULIN RATIO 0.6 (1.1-1.5); ALKALINE PHOSPHATASE 218 IU/L (46-116); ANION GAP 20 (8-16); ASPARTATE AMINO TRANSFERASE 8 U/L (10-37); BILIRUBIN,TOTAL 1.2 MG/DL (0.1-1.0); BLOOD UREA NITROGEN 49 MG/DL (7-18); BUN/CREATININE RATIO 12.9 (6.6-38.0); CALCIUM 9.5 MG/DL (8.5-10.1); CHLORIDE 102 MMOL/L (99-107); GLUCOSE 220 MG/DL (70-104); MAGNESIUM 2.1 MG/DL (1.5-2.4); PHOSPHORUS 3.5 MG/DL (2.3-4.5); POTASSIUM 4.3 MMOL/L (3.5-5.1); SODIUM 143 MMOL/L (135-145); TOTAL CARBON DIOXIDE 20.8 MMOL/L (24-32); eGFR 13 ML/MIN
[2017-10-14 03:25] LABS: PARTIAL THROMBOPLASTIN TIME 58 SECONDS (22-32); PROTHROMBIN TIME 43.9 SECONDS (9.0-12.0)
[2017-10-14 03:31] LABS: TOTAL CELLS COUNTED 100
[2017-10-14 03:32] LABS: ANISOCYTOSIS 3+; PLATELET ESTIMATE NORMAL
[2017-10-14 03:34] LABS: HYPOCHROMASIA 1+; MICROCYTOSIS 1+; POLYCHROMASIA 1+; TARGET CELLS FEW
[2017-10-14 03:35] LABS: ACANTHOCYTES FEW; SCHISTOCYTES FEW
[2017-10-14 03:40] LABS: INR 4.5 INR
[2017-10-14] MEDS ORDERED: dextrose ORAL solution 15 GM/59 ML bottle PO PRN ×2 (05:20)
[2017-10-14] MEDS ORDERED: glucagon, human recombinant 1mg kit SUBCUT PRN (05:20)
[2017-10-14] MEDS ORDERED: dextrose 50%-water 50ml dispensing syringe IV PRN ×2 (05:20)
[2017-10-14] MEDS: pantoprazole 40 MG vial IV SCH (08:10)
[2017-10-14] MEDS: diatr meglu/diatrizoate 30ml oral sol.-(3 dose) bottle PO SCH ×2 (08:10→12:03)
[2017-10-14] MEDS: heparin, porcine 5000 units/ml vial SQ SCH (08:10)
[2017-10-14] MEDS: insulin Lispro (HumaLOG) vial - multi-dose SQ SCH ×2 (08:20→16:30)
[2017-10-14] MEDS ORDERED: FAMO20TA8 PO (09:00)
[2017-10-14] MEDS ORDERED: LAMO200T2 PO (09:00)
[2017-10-14] MEDS ORDERED: FOLI1TAB16 PO (09:00)
[2017-10-14] MEDS ORDERED: APIX2.5T PO (09:00)
[2017-10-14] MEDS ORDERED: LYR75C PO (09:08)
[2017-10-14] MEDS ORDERED: METO10TA8 PO (09:08)
[2017-10-14] MEDS ORDERED: IRON-32 PO (09:08)
[2017-10-14] MEDS ORDERED: FOLI0.8T19 PO (09:08)
[2017-10-14] MEDS ORDERED: NYST1000 PO (09:08)
[2017-10-14] MEDS ORDERED: LACT1CAP65 PO (09:08)
[2017-10-14] MEDS ORDERED: METO25TA6 PO (09:08)
[2017-10-14] MEDS ORDERED: LOPE1LIQ54 PO (09:32)
[2017-10-14] MEDS ORDERED: SENN-29 PO (09:32)
[2017-10-14] MEDS ORDERED: NYST30CR2 TOP (09:32)
[2017-10-14] MEDS ORDERED: SEVE800T8 PO (09:32)
[2017-10-14] MEDS ORDERED: EPOE1000 IV (09:32)
[2017-10-14] MEDS ORDERED: ACET-2119 PO (09:32)
[2017-10-14] MEDS ORDERED: HYDR-565 PO (09:32)
[2017-10-14] MEDS ORDERED: VENL-191 PO (09:32)
[2017-10-14] MEDS ORDERED: [UNRECOGNIZED DRUG - CODE] IV (09:32)
[2017-10-14] MEDS ORDERED: LACT10SO PO (09:32)
[2017-10-14] MEDS ORDERED: TORS100T15 PO (09:32)
[2017-10-14] MEDS ORDERED: BALS60OI TOP (09:32)
[2017-10-14] MEDS ORDERED: PIPE2.258 IV (09:32)
[2017-10-14] MEDS ORDERED: ONDA4TAB12 PO (09:32)
[2017-10-14] MEDS ORDERED: HYDR1SYR IV (09:32)
[2017-10-14] MEDS ORDERED: ATR0.5NEB IH (09:34)
[2017-10-14] MEDS ORDERED: ALBU2.5V12 NEB (09:34)
[2017-10-14] MEDS ORDERED: POLY17PO10 PO (09:34)
[2017-10-14] MEDS ORDERED: EPOETIN ALFA IV PRN (10:40)
[2017-10-14] MEDS ORDERED: acetaminophen 325mg tablet PO PRN ×2 (10:40)
[2017-10-14] MEDS ORDERED: HYDROMORPHONE HCL IV PRN (10:40)
[2017-10-14] MEDS ORDERED: ipratropium 0.5 MG/2.5ML nebule IH PRN (10:40)
[2017-10-14] MEDS ORDERED: polyethylene glycol 3350 17gm powd pack PO PRN (10:40)
[2017-10-14] MEDS ORDERED: lactulose 20gm/30ml cup PO PRN (10:40)
[2017-10-14] MEDS ORDERED: NACL IV PRN (10:40)
[2017-10-14] MEDS ORDERED: ondansetron 4mg rapidly disintigrating tab PO PRN (10:40)
[2017-10-14] MEDS ORDERED: LOPERAMIDE 2 mg/10 ml oral solution UD PO PRN (10:40)
[2017-10-14] MEDS ORDERED: albuterol 2.5 MG/3 ML nebule NEB PRN (10:40)
[2017-10-14] MEDS: venlafaxine 37.5mg tablet PO SCH ×2 (11:00→20:56)
[2017-10-14] MEDS: metolazone 2.5mg tablet PO SCH (11:00)
[2017-10-14] MEDS ORDERED: apixaban 2.5mg tablet PO SCH (11:00)
[2017-10-14] MEDS: piperacillin/tazobactam inj. 2.25 GM in normal saline 50ml IV IV SCH ×3 (11:00→20:57)
[2017-10-14] MEDS: furosemide 40mg tablet PO SCH (11:00)
[2017-10-14] MEDS: iron polysaccharide complex 150mg capsule PO SCH ×2 (11:00→20:56)
[2017-10-14] MEDS ORDERED: SODIUM THIOSULFATE 12.5 GM/50 ML IV PRN ×2 (11:00→11:37)
[2017-10-14] MEDS ORDERED: normal saline 1000ml 100 ML IV PRN (11:31)
[2017-10-14] MEDS ORDERED: normal saline 1000ml 250 ML IV PRN (11:31)
[2017-10-14] MEDS ORDERED: LIDOcaine 1% (10mg/ml) 2ml vial SQ ONE (11:35)
[2017-10-14] MEDS ORDERED: epoetin 20,000 units/ml inj IV ONE (11:35)
[2017-10-14] MEDS ORDERED: NORMAL SALINE IV ONE (12:00)
[2017-10-14] MEDS ORDERED: SODIUM THIOSULFATE IV ONE (12:00)
[2017-10-14] MEDS: sevelamer carbonate 800mg tablet PO SCH ×2 (13:00→18:00)
[2017-10-14] MEDS: nystatin 500,000 unit/5ML UD oral suspension PO SCH ×2 (14:00→20:56)
[2017-10-14] MEDS: pregabalin 75mg capsule PO SCH (16:26)
[2017-10-14] MEDS: sennosides/docusate sodium tablet PO SCH ×2 (16:26→20:56)
[2017-10-14] MEDS: metoprolol tartrate 12.5mg (1/2 tablet) PO SCH ×2 (16:28→20:56)
[2017-10-14] MEDS: HYDROcodone/acetaminophen 10/325mg tab PO PRN (18:58)
[2017-10-14] MEDS: NYSTATIN CREAM - 30GM TUBE TP SCH (20:00)
[2017-10-14] MEDS: lactobacillus rhamnosus 10,000 MMU CELLS/CAPSULE PO SCH (20:00)
[2017-10-14] MEDS: CASTOR OIL TP SCH (20:00)
[2017-10-14] MEDS: BALSAM PERU TP SCH (20:00)
[2017-10-14] MEDS: lamoTRIgine 100mg tablet PO SCH (20:55)
[2017-10-14] MEDS: apixaban 2.5mg tablet PO SCH (20:56)
[2017-10-14] MEDS: famotidine 20mg tablet PO SCH (20:56)
[2017-10-14] MEDS: insulin glargine (Lantus) pen - multi-dose SQ SCH (21:03)
[2017-10-15] VITALS (23 sets, daily range): BP systolic 136–192; BP diastolic 76–100
[2017-10-15] MEDS: hydrocortisone sod succ/PF 100mg/2ml inj. IV SCH ×4 (02:36→21:32)
[2017-10-15] MEDS: piperacillin/tazobactam inj. 2.25 GM in normal saline 50ml IV IV SCH ×4 (02:36→21:31)
[2017-10-15] MEDS: nystatin 500,000 unit/5ML UD oral suspension PO SCH ×4 (02:36→21:31)
[2017-10-15 03:30] LABS: BASOPHILS % (AUTO) 0.1 % (0-1); EOSINOPHILS # (AUTO) 0.3 X10'3 (0-0.9); EOSINOPHILS % (AUTO) 1.6 % (0-6); HEMATOCRIT 29.8 % (35.0-45.0); HEMOGLOBIN 9.4 g/dl (12.0-16.0); LYMPHOCYTES # (AUTO) 0.9 X10'3 (1.1-4.8); LYMPHOCYTES % (AUTO) 4.1 % (21-51); MEAN CORPUSCULAR HEMOGLOBIN 27.2 PG (27.0-31.0); MEAN CORPUSCULAR HGB CONC 31.6 % (33.0-36.5); MEAN CORPUSCULAR VOLUME 86.1 FL (78-98); MEAN PLATELET VOLUME 8.8 FL (7.4-10.4); MONOCYTES # (AUTO) 0.5 X10'3 (0-0.9); MONOCYTES % (AUTO) 2.1 % (2-12); NEUTROPHILS # (AUTO) 19.4 X10'3 (1.8-7.7); NEUTROPHILS % (AUTO) 92.1 % (42-75); PLATELET COUNT 281 X10'3 (140-440); RED BLOOD COUNT 3.46 X10'6 (4.20-5.60); RED CELL DISTRIBUTION WIDTH 20.7 % (11.5-14.5)
[2017-10-15 03:40] LABS: ALANINE AMINOTRANSFERASE 10 U/L (12-78); ALBUMIN 2.2 G/DL (3.4-5.0); ALBUMIN/GLOBULIN RATIO 0.5 (1.1-1.5); ALKALINE PHOSPHATASE 253 IU/L (46-116); ANION GAP 20 (8-16); ASPARTATE AMINO TRANSFERASE 10 U/L (10-37); BLOOD UREA NITROGEN 38 MG/DL (7-18); BUN/CREATININE RATIO 13.3 (6.6-38.0); CHLORIDE 100 MMOL/L (99-107); CREATININE 2.85 MG/DL (0.40-0.90); GLUCOSE 226 MG/DL (70-104); PHOSPHORUS 3.1 MG/DL (2.3-4.5); POTASSIUM 3.8 MMOL/L (3.5-5.1); SODIUM 142 MMOL/L (135-145); TOTAL CARBON DIOXIDE 21.8 MMOL/L (24-32); TOTAL PROTEIN 6.8 G/DL (6.4-8.2); eGFR 19 ML/MIN
[2017-10-15 03:43] LABS: PARTIAL THROMBOPLASTIN TIME 51 SECONDS (22-32); PROTHROMBIN TIME 44.8 SECONDS (9.0-12.0)
[2017-10-15] MEDS: HYDROcodone/acetaminophen 10/325mg tab PO PRN (03:44)
[2017-10-15 03:48] LABS: INR 4.6 INR
[2017-10-15 04:13] LABS: TOTAL CELLS COUNTED 100
[2017-10-15 04:14] LABS: ANISOCYTOSIS 3+; PLATELET ESTIMATE NORMAL
[2017-10-15 04:17] LABS: BURR CELLS FEW; HYPOCHROMASIA 1+; MICROCYTOSIS 2+; POLYCHROMASIA 1+; SCHISTOCYTES FEW; TARGET CELLS FEW
[2017-10-15] MEDS: pantoprazole 40 MG vial IV SCH (07:38)
[2017-10-15] MEDS: iron polysaccharide complex 150mg capsule PO SCH ×2 (07:45→21:33)
[2017-10-15] MEDS: venlafaxine 37.5mg tablet PO SCH ×2 (07:45→20:00)
[2017-10-15] MEDS: sevelamer carbonate 800mg tablet PO SCH ×3 (07:46→18:00)
[2017-10-15] MEDS: metoprolol tartrate 12.5mg (1/2 tablet) PO SCH ×2 (07:46→21:31)
[2017-10-15] MEDS: folic acid/vitamin B complex w/vitamin C 0.8mg tablet PO SCH (07:47)
[2017-10-15] MEDS: pregabalin 75mg capsule PO SCH (07:47)
[2017-10-15] MEDS: sennosides/docusate sodium tablet PO SCH ×2 (07:48→20:00)
[2017-10-15] MEDS: folic acid 1mg tablet PO SCH (07:48)
[2017-10-15] MEDS: lactobacillus rhamnosus 10,000 MMU CELLS/CAPSULE PO SCH ×2 (07:56→21:32)
[2017-10-15] MEDS: furosemide 40mg tablet PO SCH (08:00)
[2017-10-15] MEDS: NYSTATIN CREAM - 30GM TUBE TP SCH ×2 (08:00→21:53)
[2017-10-15] MEDS: BALSAM PERU TP SCH ×2 (08:00→21:52)
[2017-10-15] MEDS: CASTOR OIL TP SCH ×2 (08:00→21:52)
[2017-10-15] MEDS: metolazone 2.5mg tablet PO SCH (08:00)
[2017-10-15] MEDS ORDERED: phytonadione inj. 5 MG in normal saline 100ml IV soln 99.5 ML IV ONE (11:10)
[2017-10-15] MEDS: apixaban 2.5mg tablet PO SCH ×2 (11:45→20:00)
[2017-10-15] MEDS: insulin Lispro (HumaLOG) vial - multi-dose SQ SCH ×2 (13:34→19:26)
[2017-10-15] MEDS ORDERED: lactulose 20gm/30ml cup PO PRN (15:10)
[2017-10-15] MEDS ORDERED: polyethylene glycol 3350 17gm powd pack PO PRN (15:10)
[2017-10-15] MEDS: famotidine 20mg tablet PO SCH (21:53)
[2017-10-15] MEDS: lamoTRIgine 100mg tablet PO SCH (21:53)
[2017-10-15] MEDS: insulin glargine (Lantus) pen - multi-dose SQ SCH (21:55)
[2017-10-16] VITALS (17 sets, daily range): BP systolic 143–198; BP diastolic 81–111
[2017-10-16] MEDS: nystatin 500,000 unit/5ML UD oral suspension PO SCH ×3 (02:39→13:26)
[2017-10-16] MEDS: piperacillin/tazobactam inj. 2.25 GM in normal saline 50ml IV IV SCH ×3 (02:39→13:26)
[2017-10-16] MEDS: hydrocortisone sod succ/PF 100mg/2ml inj. IV SCH ×3 (02:39→13:26)
[2017-10-16 03:16] LABS: BASOPHILS # (AUTO) 0.1 X10'3 (0-0.2); BASOPHILS % (AUTO) 0.3 % (0-1); EOSINOPHILS # (AUTO) 0.2 X10'3 (0-0.9); HEMATOCRIT 32.6 % (35.0-45.0); HEMOGLOBIN 10.3 g/dl (12.0-16.0); LYMPHOCYTES # (AUTO) 1.1 X10'3 (1.1-4.8); LYMPHOCYTES % (AUTO) 5.2 % (21-51); MEAN CORPUSCULAR HEMOGLOBIN 27.3 PG (27.0-31.0); MEAN CORPUSCULAR HGB CONC 31.5 % (33.0-36.5); MEAN CORPUSCULAR VOLUME 86.7 FL (78-98); MEAN PLATELET VOLUME 8.7 FL (7.4-10.4); MONOCYTES # (AUTO) 0.4 X10'3 (0-0.9); MONOCYTES % (AUTO) 1.7 % (2-12); NEUTROPHILS # (AUTO) 18.8 X10'3 (1.8-7.7); NEUTROPHILS % (AUTO) 91.8 % (42-75); PLATELET COUNT 284 X10'3 (140-440); RED BLOOD COUNT 3.76 X10'6 (4.20-5.60); RED CELL DISTRIBUTION WIDTH 20.5 % (11.5-14.5); WHITE BLOOD COUNT 20.4 X10'3 (4.5-11.0)
[2017-10-16 03:25] LABS: INR 1.5 INR; PARTIAL THROMBOPLASTIN TIME 39 SECONDS (22-32); PROTHROMBIN TIME 15.3 SECONDS (9.0-12.0)
[2017-10-16 03:30] LABS: ALANINE AMINOTRANSFERASE 10 U/L (12-78); ALBUMIN/GLOBULIN RATIO 0.4 (1.1-1.5); ALKALINE PHOSPHATASE 248 IU/L (46-116); ANION GAP 14 (8-16); ASPARTATE AMINO TRANSFERASE 9 U/L (10-37); BLOOD UREA NITROGEN 58 MG/DL (7-18); BUN/CREATININE RATIO 17.3 (6.6-38.0); CALCIUM 9.4 MG/DL (8.5-10.1); CHLORIDE 99 MMOL/L (99-107); CREATININE 3.36 MG/DL (0.40-0.90); GLUCOSE 195 MG/DL (70-104); MAGNESIUM 2.1 MG/DL (1.5-2.4); PHOSPHORUS 3.8 MG/DL (2.3-4.5); POTASSIUM 3.9 MMOL/L (3.5-5.1); SODIUM 140 MMOL/L (135-145); TOTAL CARBON DIOXIDE 26.7 MMOL/L (24-32); TOTAL PROTEIN 6.6 G/DL (6.4-8.2); eGFR 15 ML/MIN
[2017-10-16 04:14] LABS: ANISOCYTOSIS 2+; PLATELET ESTIMATE NORMAL
[2017-10-16 04:18] LABS: POLYCHROMASIA FEW; SCHISTOCYTES FEW
[2017-10-16 04:28] LABS: BURR CELLS FEW
[2017-10-16] MEDS: apixaban 2.5mg tablet PO SCH (08:00)
[2017-10-16] MEDS: metolazone 2.5mg tablet PO SCH (08:00)
[2017-10-16] MEDS: furosemide 40mg tablet PO SCH (08:00)
[2017-10-16] MEDS: pantoprazole 40 MG vial IV SCH (08:48)
[2017-10-16] MEDS: folic acid 1mg tablet PO SCH (08:49)
[2017-10-16] MEDS: iron polysaccharide complex 150mg capsule PO SCH (08:49)
[2017-10-16] MEDS: venlafaxine 37.5mg tablet PO SCH (08:49)
[2017-10-16] MEDS: sevelamer carbonate 800mg tablet PO SCH ×2 (08:49→13:22)
[2017-10-16] MEDS: sennosides/docusate sodium tablet PO SCH (08:49)
[2017-10-16] MEDS: pregabalin 75mg capsule PO SCH (08:49)
[2017-10-16] MEDS: lactobacillus rhamnosus 10,000 MMU CELLS/CAPSULE PO SCH (08:50)
[2017-10-16] MEDS: folic acid/vitamin B complex w/vitamin C 0.8mg tablet PO SCH (08:50)
[2017-10-16] MEDS: metoprolol tartrate 12.5mg (1/2 tablet) PO SCH (08:51)
[2017-10-16] MEDS ORDERED: normal saline 1000ml 250 ML IV PRN (09:32)
[2017-10-16] MEDS ORDERED: LIDOcaine 1% (10mg/ml) 2ml vial SQ ONE (09:35)
[2017-10-16] MEDS ORDERED: epoetin 20,000 units/ml inj IV ONE (09:35)
[2017-10-16] MEDS: insulin Lispro (HumaLOG) vial - multi-dose SQ SCH ×2 (09:36→14:45)
[2017-10-16 11:47] LABS: HBSAG SCREEN Negative (Negative)
[2017-10-16] MEDS: CASTOR OIL TP SCH (13:23)
[2017-10-16] MEDS: NYSTATIN CREAM - 30GM TUBE TP SCH (13:23)
[2017-10-16] MEDS: BALSAM PERU TP SCH (13:23)
[2017-10-16] MEDS: HYDROcodone/acetaminophen 10/325mg tab PO PRN (17:00)
[2017-10-18] MEDS ORDERED: methylnaltrexone br 12mg/0.6ml inj***SubQ only SQ SCH (08:00)
== END 2017-10-16 17:11 | DRG 871 ==
LOC: ICU 2S 15:23
PROVIDERS: ADMIT Internal Medicine Critical Care Medicine; ATTEND Internal Medicine Critical Care Medicine
PROC: 30233N1 Transfusion of Nonautologous Red Blood Cells into Peripheral Vein, Percutaneous Approach (ICD-10-PCS; principal; 2017-10-13)
PROC: 5A09357 Assistance with Respiratory Ventilation, Less than 24 Consecutive Hours, Continuous Positive Airway Pressure (ICD-10-PCS; 2017-10-13)
PROC: 02HV33Z Insertion of Infusion Device into Superior Vena Cava, Percutaneous Approach (ICD-10-PCS; 2017-10-13)
PROC: 5A1D70Z Performance of Urinary Filtration, Intermittent, Less than 6 Hours Per Day (ICD-10-PCS; 2017-10-14)
PROC: 5A1D70Z Performance of Urinary Filtration, Intermittent, Less than 6 Hours Per Day (ICD-10-PCS; 2017-10-16)
DX: A41.9 Sepsis, unspecified organism (principal); R65.21 Severe sepsis with septic shock; N18.6 End stage renal disease; Z68.42 Body mass index [BMI] 45.0-49.9, adult; L02.211 Cutaneous abscess of abdominal wall; I42.9 Cardiomyopathy, unspecified; I82.409 Acute embolism and thrombosis of unspecified deep veins of unspecified lower extremity; D64.9 Anemia, unspecified; R40.0 Somnolence; T40.2X5A Adverse effect of other opioids, initial encounter; R06.89 Other abnormalities of breathing; E83.59 Other disorders of calcium metabolism; E65 Localized adiposity; B96.4 Proteus (mirabilis) (morganii) as the cause of diseases classified elsewhere; B96.1 Klebsiella pneumoniae [K. pneumoniae] as the cause of diseases classified elsewhere; B95.2 Enterococcus as the cause of diseases classified elsewhere; Z88.6 Allergy status to analgesic agent; Z88.8 Allergy status to other drugs, medicaments and biological substances; Z79.01 Long term (current) use of anticoagulants; Y92.89 Other specified places as the place of occurrence of the external cause
CPT/HCPCS: 36415; 36600; 71045; 71250; 74176; 80048; 80053; 82140; 82803; 82810; 82948; 83605; 83735; 83880; 84100; 84145; 84439; 84443; 85018; 85025; 85379; 85384; 85610; 85730; 86644; 86885; 86900; 86901; 86920; 86945; 87040; 87340; 93005; 94660; 94760; A6213; A6250; A6253; A6260; A6402; A6449; C9113; G0257; J0885; J1644; J1720; J1815; J2543; J3430; J3490; J7030; J7040; P9016; P9047; Q9963

== ENCOUNTER 2017-10-18 07:25 | Inpatient (IN) | payer MEDICARE, MEDICAID ==
[2017-10-18] VITALS (20 sets, daily range): BP systolic 111–187; BP diastolic 61–104
[~2017-10-18] VITALS: Ht 167.6 cm; Wt 129.1 kg
[~2017-10-18 07:25] MED LIST changes: +ACET-2119 PO; +ALBU2.5V12 NEB; +APIX2.5T PO; +ATR0.5NEB IH; +BALS60OI TOP; +EPOE1000 IV; +FOLI0.8T19 PO; +FOLI1TAB16 PO; +HYDR-565 PO; +HYDR1SYR IV; +IRON-32 PO; +LACT10SO PO; +LACT1CAP65 PO; +LOPE1LIQ54 PO; +METO25TA6 PO; +NYST30CR2 TOP; +ONDA4TAB12 PO; +PIPE2.258 IV; +POLY17PO10 PO; +SENN-29 PO; +VENL-191 PO
[2017-10-18] MEDS ORDERED: tranexamic acid 100mg/ml inj. IV ONE (07:45)
[2017-10-18] MEDS ORDERED: pantoprazole 40 MG vial IV ONE (07:55)
[2017-10-18] MEDS ORDERED: PROTHROMBIN COMPLEX CONCENTRATE IV ONE (08:00)
[2017-10-18 08:06] LABS: BASOPHILS # (AUTO) 0.2 X10'3 (0-0.2); BASOPHILS % (AUTO) 0.9 % (0-1); EOSINOPHILS % (AUTO) 0 % (0-6); HEMATOCRIT 23.4 % (35.0-45.0); HEMOGLOBIN 7.4 g/dl (12.0-16.0); LYMPHOCYTES # (AUTO) 0.7 X10'3 (1.1-4.8); LYMPHOCYTES % (AUTO) 2.8 % (21-51); MEAN CORPUSCULAR HEMOGLOBIN 27.4 PG (27.0-31.0); MEAN CORPUSCULAR HGB CONC 31.6 % (33.0-36.5); MEAN CORPUSCULAR VOLUME 86.7 FL (78-98); MEAN PLATELET VOLUME 8.8 FL (7.4-10.4); MONOCYTES # (AUTO) 0.5 X10'3 (0-0.9); MONOCYTES % (AUTO) 1.9 % (2-12); NEUTROPHILS # (AUTO) 24.4 X10'3 (1.8-7.7); NEUTROPHILS % (AUTO) 94.4 % (42-75); PLATELET COUNT 320 X10'3 (140-440); RED CELL DISTRIBUTION WIDTH 20.3 % (11.5-14.5)
[2017-10-18] MEDS ORDERED: normal saline 1000ML IV soln IVB ONE (08:10)
[2017-10-18] MEDS ORDERED: vasopressin inj. 60 UNIT in normal saline 100ml IV soln 97 ML IV SCH (08:10)
[2017-10-18 08:20] LABS: ALBUMIN 1.6 G/DL (3.4-5.0); ANION GAP 10 (8-16); BLOOD UREA NITROGEN 62 MG/DL (7-18); BUN/CREATININE RATIO 16.3 (6.6-38.0); CALCIUM 8.4 MG/DL (8.5-10.1); CHLORIDE 98 MMOL/L (99-107); GLUCOSE 431 MG/DL (70-104); POTASSIUM 4.2 MMOL/L (3.5-5.1); SODIUM 136 MMOL/L (135-145); TOTAL CARBON DIOXIDE 28.5 MMOL/L (24-32); TOTAL PROTEIN 4.9 G/DL (6.4-8.2); eGFR 13 ML/MIN
[2017-10-18 08:21] LABS: ALANINE AMINOTRANSFERASE 12 U/L (12-78); ALBUMIN/GLOBULIN RATIO 0.5 (1.1-1.5); ALKALINE PHOSPHATASE 156 IU/L (46-116); ASPARTATE AMINO TRANSFERASE 4 U/L (10-37)
[2017-10-18] MEDS ORDERED: iohexol 300mg/ml 100ml inj. ONE (08:22)
[2017-10-18 08:37] LABS: INR 1.3 INR; PARTIAL THROMBOPLASTIN TIME 31 SECONDS (22-32); PROTHROMBIN TIME 13.5 SECONDS (9.0-12.0)
[2017-10-18 08:49] LABS: WHITE BLOOD COUNT 25.9 X10'3 (4.5-11.0)
[2017-10-18 09:09] LABS: TOTAL CELLS COUNTED 100
[2017-10-18 09:12] LABS: ANISOCYTOSIS 2+; PLATELET ESTIMATE NORMAL
[2017-10-18 09:13] LABS: GIANT PLATELET FEW; POLYCHROMASIA FEW; SCHISTOCYTES FEW
[2017-10-18 09:23] LABS: HEMATOCRIT 25.6 % (35.0-45.0); HEMOGLOBIN 8.4 g/dl (12.0-16.0); MEAN CORPUSCULAR HEMOGLOBIN 29.4 PG (27.0-31.0); MEAN CORPUSCULAR HGB CONC 32.7 % (33.0-36.5); MEAN CORPUSCULAR VOLUME 89.7 FL (78-98); MEAN PLATELET VOLUME 8.8 FL (7.4-10.4); PLATELET COUNT 246 X10'3 (140-440); RED BLOOD COUNT 2.85 X10'6 (4.20-5.60); RED CELL DISTRIBUTION WIDTH 18.6 % (11.5-14.5); WHITE BLOOD COUNT 23.8 X10'3 (4.5-11.0)
[2017-10-18] MEDS ORDERED: fentaNYL/PF 50MCG/1 ML 2ML syringe IV ONE (09:45)
[2017-10-18 09:47] LABS: CLARITY,URINE CLOUDY (Clear); COLOR,URINE BROWN (Yellow); GLUCOSE, URINE NEGATIVE (Neg); KETONES,URINE NEGATIVE (Neg); LEUKOCYTE ESTERASE ,URINE MODERATE (Neg); NITRITES, URINE POSITIVE (Neg); OCCULT BLOOD,URINE LARGE (Neg); PROTEIN,URINE >=300 mg/dl (Neg); UROBILINOGEN,URINE 0.2 E.U/dL (0.2-1.0)
[2017-10-18 09:56] LABS: UA COLLECTION TYPE FOLEY CATH
[2017-10-18 09:58] LABS: RBC,URINE TNTC /HPF (0-2); WBC,URINE TNTC /HPF (0-4)
[2017-10-18 09:59] LABS: BACTERIA,URINE 4+ /HPF (Neg); MUCUS STRANDS NONE SEEN /LPF (Neg); RENAL CELLS, URINE FEW /HPF; SQUAMOUS EPITHELIAL CELL,UR FEW /LPF (FEW)
[2017-10-18 10:00] LABS: YEAST MANY /HPF (NEGATIVE)
[2017-10-18] MEDS ORDERED: acetaminophen 325mg tablet PO PRN ×2 (10:15)
[2017-10-18] MEDS ORDERED: potassium Cl 20 mEq SR tablet PO PRN ×2 (10:15)
[2017-10-18] MEDS ORDERED: ondansetron/PF 4mg/2ml inj IV PRN (10:15)
[2017-10-18] MEDS ORDERED: pantoprazole 40 MG vial IV SCH (10:15)
[2017-10-18] MEDS: K, MAG and/or Phos replacement - Verify level? MC SCH (10:15)
[2017-10-18] MEDS ORDERED: pantoprazole 40MG/NS 100ML BAG 100 ML IV SCH (11:00)
[2017-10-18] MEDS ORDERED: MIDAZolam 5mg/5ml vial ONE (11:06)
[2017-10-18] MEDS ORDERED: fentaNYL/PF 50MCG/1 ML 2ML syringe ONE (11:06)
[2017-10-18] MEDS ORDERED: LIDOcaine Viscous 15ml cup ONE (11:06)
[2017-10-18] MEDS ORDERED: metoclopramide 5 mg/ml inj IV PRN (14:00)
[2017-10-18] MEDS ORDERED: MESSAGE TO PHARMACY PO ONE (15:00)
[2017-10-18] MEDS ORDERED: dextrose ORAL solution 15 GM/59 ML bottle PO PRN ×2 (15:00)
[2017-10-18] MEDS ORDERED: glucagon, human recombinant 1mg kit SUBCUT PRN (15:00)
[2017-10-18] MEDS ORDERED: dextrose 50%-water 50ml dispensing syringe IV PRN ×2 (15:00)
[2017-10-18] MEDS ORDERED: insulin Lispro (HumaLOG) vial - multi-dose SQ SCH (15:00)
[2017-10-18] MEDS ORDERED: PEG 3350/Na sulf,bicarb,Cl/KCl oral sol 4 liter bottle PO ONE ×2 (16:00→20:15)
[2017-10-18 16:22] LABS: HEMATOCRIT 24.8 % (35.0-45.0); HEMOGLOBIN 8.1 g/dl (12.0-16.0); MEAN CORPUSCULAR HEMOGLOBIN 29.2 PG (27.0-31.0); MEAN CORPUSCULAR HGB CONC 32.9 % (33.0-36.5); MEAN CORPUSCULAR VOLUME 88.8 FL (78-98); MEAN PLATELET VOLUME 8.6 FL (7.4-10.4); PLATELET COUNT 247 X10'3 (140-440); RED BLOOD COUNT 2.79 X10'6 (4.20-5.60); RED CELL DISTRIBUTION WIDTH 18.2 % (11.5-14.5)
[2017-10-18 16:30] LABS: WHITE BLOOD COUNT 26.5 X10'3 (4.5-11.0)
[2017-10-18] MEDS: insulin regular, human vial - multi-dose SQ SCH ×2 (18:15→20:23)
[2017-10-18] MEDS: famotidine 20mg tablet NG SCH (20:00)
[2017-10-18] MEDS: HYDROmorphone 1 mg/ml syringe IV PRN (20:10)
[2017-10-18] MEDS: insulin glargine (Lantus) pen - multi-dose SQ SCH (20:24)
[2017-10-18] MEDS: metoclopramide 5 mg/ml inj IV SCH (21:42)
[2017-10-18 22:00] LABS: HEMOGLOBIN 7.1 g/dl (12.0-16.0); MEAN CORPUSCULAR HEMOGLOBIN 28.9 PG (27.0-31.0); MEAN CORPUSCULAR HGB CONC 32.7 % (33.0-36.5); MEAN CORPUSCULAR VOLUME 88.3 FL (78-98); MEAN PLATELET VOLUME 8.6 FL (7.4-10.4); PLATELET COUNT 231 X10'3 (140-440); RED BLOOD COUNT 2.44 X10'6 (4.20-5.60); RED CELL DISTRIBUTION WIDTH 18.6 % (11.5-14.5); WHITE BLOOD COUNT 23.2 X10'3 (4.5-11.0)
[2017-10-18 22:04] LABS: HEMATOCRIT 21.6 % (35.0-45.0)
[2017-10-19] VITALS (26 sets, daily range): BP systolic 76–157; BP diastolic 52–82
[2017-10-19] MEDS: HYDROmorphone 1 mg/ml syringe IV PRN ×4 (00:21→21:05)
[2017-10-19] MEDS: metoclopramide 5 mg/ml inj IV SCH (02:17)
[2017-10-19] MEDS: insulin regular, human vial - multi-dose SQ SCH ×2 (02:35→08:27)
[2017-10-19 02:46] LABS: BASOPHILS % (AUTO) 0.1 % (0-1); EOSINOPHILS # (AUTO) 0.4 X10'3 (0-0.9); EOSINOPHILS % (AUTO) 1.7 % (0-6); HEMATOCRIT 23.4 % (35.0-45.0); HEMOGLOBIN 7.6 g/dl (12.0-16.0); LYMPHOCYTES # (AUTO) 1.7 X10'3 (1.1-4.8); LYMPHOCYTES % (AUTO) 7.3 % (21-51); MEAN CORPUSCULAR HEMOGLOBIN 28.6 PG (27.0-31.0); MEAN CORPUSCULAR HGB CONC 32.6 % (33.0-36.5); MEAN CORPUSCULAR VOLUME 87.8 FL (78-98); MEAN PLATELET VOLUME 8.6 FL (7.4-10.4); MONOCYTES # (AUTO) 0.7 X10'3 (0-0.9); MONOCYTES % (AUTO) 2.9 % (2-12); NEUTROPHILS # (AUTO) 20.1 X10'3 (1.8-7.7); PLATELET COUNT 217 X10'3 (140-440); RED BLOOD COUNT 2.67 X10'6 (4.20-5.60); RED CELL DISTRIBUTION WIDTH 18.3 % (11.5-14.5); WHITE BLOOD COUNT 22.8 X10'3 (4.5-11.0)
[2017-10-19 02:57] LABS: INR 1.2 INR; PARTIAL THROMBOPLASTIN TIME 28 SECONDS (22-32); PROTHROMBIN TIME 12.4 SECONDS (9.0-12.0)
[2017-10-19 02:59] LABS: ALANINE AMINOTRANSFERASE 12 U/L (12-78); ALBUMIN 1.5 G/DL (3.4-5.0); ALBUMIN/GLOBULIN RATIO 0.5 (1.1-1.5); ALKALINE PHOSPHATASE 104 IU/L (46-116); ANION GAP 9 (8-16); ASPARTATE AMINO TRANSFERASE 6 U/L (10-37); BILIRUBIN,TOTAL 0.6 MG/DL (0.1-1.0); BLOOD UREA NITROGEN 67 MG/DL (7-18); BUN/CREATININE RATIO 17.7 (6.6-38.0); CALCIUM 8.2 MG/DL (8.5-10.1); CHLORIDE 101 MMOL/L (99-107); CREATININE 3.79 MG/DL (0.40-0.90); GLUCOSE 284 MG/DL (70-104); MAGNESIUM 1.9 MG/DL (1.5-2.4); PHOSPHORUS 4.3 MG/DL (2.3-4.5); POTASSIUM 3.3 MMOL/L (3.5-5.1); SODIUM 138 MMOL/L (135-145); TOTAL CARBON DIOXIDE 28.4 MMOL/L (24-32); TOTAL PROTEIN 4.6 G/DL (6.4-8.2); eGFR 13 ML/MIN
[2017-10-19] MEDS ORDERED: potassium Cl 40MEQ/250ML bag 250 ML IV PRN ×2 (03:15)
[2017-10-19] MEDS ORDERED: magnesium 1gm/100ml D5W IVPB 100 ML IV PRN (03:15)
[2017-10-19] MEDS ORDERED: magnesium 4gm in 100ml NS 100 ML IV PRN (03:15)
[2017-10-19 05:00] LABS: ANISOCYTOSIS 2+; PLATELET ESTIMATE NORMAL; POLYCHROMASIA FEW; TOTAL CELLS COUNTED 100
[2017-10-19] MEDS: K, MAG and/or Phos replacement - Verify level? MC SCH (08:17)
[2017-10-19] MEDS: famotidine 20mg tablet NG SCH ×2 (08:17→21:01)
[2017-10-19] MEDS ORDERED: normal saline 1000ml 250 ML IV PRN (10:06)
[2017-10-19] MEDS ORDERED: epoetin 20,000 units/ml inj IV ONE (10:10)
[2017-10-19] MEDS ORDERED: LIDOcaine 1% (10mg/ml) 2ml vial SQ ONE (10:10)
[2017-10-19] MEDS ORDERED: PEG 3350/Na sulf,bicarb,Cl/KCl oral sol 4 liter bottle PO ONE (10:40)
[2017-10-19 11:08] LABS: HEMATOCRIT 23.9 % (35.0-45.0); HEMOGLOBIN 7.9 g/dl (12.0-16.0); MEAN CORPUSCULAR HEMOGLOBIN 29.1 PG (27.0-31.0); MEAN CORPUSCULAR HGB CONC 33.2 % (33.0-36.5); MEAN CORPUSCULAR VOLUME 87.6 FL (78-98); MEAN PLATELET VOLUME 8.5 FL (7.4-10.4); PLATELET COUNT 239 X10'3 (140-440); RED BLOOD COUNT 2.73 X10'6 (4.20-5.60); RED CELL DISTRIBUTION WIDTH 19.4 % (11.5-14.5); WHITE BLOOD COUNT 23.7 X10'3 (4.5-11.0)
[2017-10-19] MEDS ORDERED: albumin (human) 25% 100ml IV 100 ML IV PRN (11:35)
[2017-10-19] MEDS ORDERED: polyethylene glycol 3350 17gm powd pack PO PRN (11:55)
[2017-10-19] MEDS ORDERED: ondansetron 4mg rapidly disintigrating tab PO PRN (11:55)
[2017-10-19] MEDS ORDERED: HYDROMORPHONE HCL IV PRN (11:55)
[2017-10-19] MEDS ORDERED: ipratropium 0.5 MG/2.5ML nebule IH PRN (11:55)
[2017-10-19] MEDS ORDERED: acetaminophen 325mg tablet PO PRN ×2 (11:55)
[2017-10-19] MEDS ORDERED: epoetin 20,000 units/ml inj IV PRN (11:55)
[2017-10-19] MEDS ORDERED: albuterol 2.5 MG/3 ML nebule NEB PRN (11:55)
[2017-10-19] MEDS ORDERED: NACL IV PRN (11:55)
[2017-10-19] MEDS ORDERED: lactulose 20gm/30ml cup PO PRN (11:55)
[2017-10-19] MEDS ORDERED: ipratropium 0.5 MG/2.5ML nebule NEB PRN (12:13)
[2017-10-19] MEDS: sevelamer carbonate 800mg tablet PO SCH ×2 (13:00→20:59)
[2017-10-19] MEDS ORDERED: PIPERACILLIN IV SCH (14:00)
[2017-10-19] MEDS ORDERED: TAZOBACTAM IV SCH (14:00)
[2017-10-19] MEDS: nystatin 500,000 unit/5ML UD oral suspension PO SCH ×2 (14:00→20:00)
[2017-10-19] MEDS ORDERED: heparin sodium, porcine/PF 100unit/ml 5ML syringe ONE (15:00)
[2017-10-19] MEDS: piperacillin/tazobactam inj. 2.25 GM in normal saline 50ml IV IV SCH ×2 (15:05→21:01)
[2017-10-19 15:40] LABS: HEMATOCRIT 25.5 % (35.0-45.0); HEMOGLOBIN 8.5 g/dl (12.0-16.0); MEAN CORPUSCULAR HEMOGLOBIN 29.3 PG (27.0-31.0); MEAN CORPUSCULAR HGB CONC 33.4 % (33.0-36.5); MEAN CORPUSCULAR VOLUME 87.8 FL (78-98); MEAN PLATELET VOLUME 8.2 FL (7.4-10.4); PLATELET COUNT 262 X10'3 (140-440)
[2017-10-19 15:43] LABS: WHITE BLOOD COUNT 28.4 X10'3 (4.5-11.0)
[2017-10-19] MEDS ORDERED: normal saline 1000ml 1,000 ML IV SCH (16:57)
[2017-10-19] MEDS ORDERED: simethicone 40mg/0.6ml oral drops 30ml MC ONE (17:00)
[2017-10-19] MEDS ORDERED: fentaNYL/PF 50MCG/1 ML 2ML syringe IV PRN (17:00)
[2017-10-19] MEDS ORDERED: MIDAZolam 5mg/5ml vial IV PRN (17:00)
[2017-10-19] MEDS ORDERED: lactobacillus rhamnosus 10,000 MMU CELLS/CAPSULE PO SCH (17:30)
[2017-10-19] MEDS ORDERED: fentaNYL/PF 50MCG/1 ML 2ML syringe ONE (17:33)
[2017-10-19] MEDS ORDERED: MIDAZolam 5mg/5ml vial ONE (17:34)
[2017-10-19] MEDS: metoprolol tartrate 12.5mg (1/2 tablet) PO SCH (20:00)
[2017-10-19] MEDS: sennosides/docusate sodium tablet PO SCH (20:00)
[2017-10-19] MEDS ORDERED: [UNRECOGNIZED DRUG - OTHER] PO SCH (20:00)
[2017-10-19] MEDS: venlafaxine 37.5mg tablet PO SCH (20:59)
[2017-10-19] MEDS: lamoTRIgine 100mg tablet PO SCH (20:59)
[2017-10-19] MEDS: NYSTATIN CREAM - 30GM TUBE TP SCH (21:00)
[2017-10-19] MEDS ORDERED: famotidine 20mg tablet PO SCH (21:00)
[2017-10-19] MEDS: insulin glargine (Lantus) pen - multi-dose SQ SCH (21:12)
[2017-10-20] VITALS (26 sets, daily range): BP systolic 93–144; BP diastolic 50–107
[2017-10-20] MEDS: nystatin 500,000 unit/5ML UD oral suspension PO SCH ×4 (01:41→20:10)
[2017-10-20] MEDS: piperacillin/tazobactam inj. 2.25 GM in normal saline 50ml IV IV SCH ×4 (02:17→20:11)
[2017-10-20] MEDS: HYDROmorphone 1 mg/ml syringe IV PRN ×2 (03:13→13:49)
[2017-10-20 04:23] LABS: BASOPHILS % (AUTO) 0 % (0-1); EOSINOPHILS # (AUTO) 0.4 X10'3 (0-0.9); EOSINOPHILS % (AUTO) 1.2 % (0-6); HEMOGLOBIN 7.2 g/dl (12.0-16.0); LYMPHOCYTES # (AUTO) 1.7 X10'3 (1.1-4.8); LYMPHOCYTES % (AUTO) 5.4 % (21-51); MEAN CORPUSCULAR HEMOGLOBIN 28.9 PG (27.0-31.0); MEAN CORPUSCULAR VOLUME 87.7 FL (78-98); MEAN PLATELET VOLUME 8.6 FL (7.4-10.4); MONOCYTES # (AUTO) 0.9 X10'3 (0-0.9); MONOCYTES % (AUTO) 3.1 % (2-12); NEUTROPHILS # (AUTO) 27.5 X10'3 (1.8-7.7); NEUTROPHILS % (AUTO) 90.3 % (42-75); PLATELET COUNT 227 X10'3 (140-440); RED BLOOD COUNT 2.49 X10'6 (4.20-5.60); RED CELL DISTRIBUTION WIDTH 19.3 % (11.5-14.5)
[2017-10-20 04:44] LABS: INR 1.2 INR; PARTIAL THROMBOPLASTIN TIME 30 SECONDS (22-32); PROTHROMBIN TIME 12.7 SECONDS (9.0-12.0)
[2017-10-20 04:53] LABS: HEMATOCRIT 21.9 % (35.0-45.0); WHITE BLOOD COUNT 30.4 X10'3 (4.5-11.0)
[2017-10-20 04:56] LABS: ALANINE AMINOTRANSFERASE 10 U/L (12-78); ALBUMIN 1.4 G/DL (3.4-5.0); ALBUMIN/GLOBULIN RATIO 0.4 (1.1-1.5); ALKALINE PHOSPHATASE 114 IU/L (46-116); ANION GAP 11 (8-16); ASPARTATE AMINO TRANSFERASE 10 U/L (10-37); BILIRUBIN,TOTAL 0.6 MG/DL (0.1-1.0); BLOOD UREA NITROGEN 39 MG/DL (7-18); BUN/CREATININE RATIO 14.1 (6.6-38.0); CALCIUM 7.8 MG/DL (8.5-10.1); CHLORIDE 101 MMOL/L (99-107); CREATININE 2.77 MG/DL (0.40-0.90); GLUCOSE 144 MG/DL (70-104); MAGNESIUM 1.7 MG/DL (1.5-2.4); PHOSPHORUS 3.5 MG/DL (2.3-4.5); SODIUM 140 MMOL/L (135-145); TOTAL CARBON DIOXIDE 28.3 MMOL/L (24-32); TOTAL PROTEIN 4.6 G/DL (6.4-8.2); eGFR 19 ML/MIN
[2017-10-20 05:02] LABS: ANISOCYTOSIS 2+; HYPOCHROMASIA 1+; MICROCYTOSIS 1+; PLATELET ESTIMATE NORMAL; POIKILOCYTOSIS 1+; POLYCHROMASIA 1+; SCHISTOCYTES 1+; TOTAL CELLS COUNTED 100
[2017-10-20] MEDS: sevelamer carbonate 800mg tablet PO SCH ×3 (08:00→18:00)
[2017-10-20] MEDS: K, MAG and/or Phos replacement - Verify level? MC SCH (08:00)
[2017-10-20] MEDS: metoclopramide 5 mg/ml inj IV SCH ×2 (08:18→14:10)
[2017-10-20] MEDS: lactobacillus rhamnosus 10,000 MMU CELLS/CAPSULE PO SCH ×2 (08:19→18:01)
[2017-10-20] MEDS: furosemide 40mg tablet PO SCH (08:19)
[2017-10-20] MEDS: folic acid/vitamin B complex w/vitamin C 0.8mg tablet PO SCH (08:19)
[2017-10-20] MEDS: famotidine 20mg tablet NG SCH ×2 (08:20→20:10)
[2017-10-20] MEDS: folic acid 1mg tablet PO SCH (08:20)
[2017-10-20] MEDS: metolazone 2.5mg tablet PO SCH (08:20)
[2017-10-20] MEDS: pregabalin 75mg capsule PO SCH (08:20)
[2017-10-20] MEDS: venlafaxine 37.5mg tablet PO SCH ×2 (08:20→20:10)
[2017-10-20] MEDS: metoprolol tartrate 12.5mg (1/2 tablet) PO SCH ×2 (08:20→20:10)
[2017-10-20] MEDS: sennosides/docusate sodium tablet PO SCH ×2 (08:20→20:00)
[2017-10-20] MEDS: NYSTATIN CREAM - 30GM TUBE TP SCH ×2 (08:26→20:11)
[2017-10-20] MEDS: HYDROcodone/acetaminophen 10/325mg tab PO PRN ×2 (08:30→22:01)
[2017-10-20] MEDS ORDERED: fluconazole 100mg tablet PO ONE (10:25)
[2017-10-20] MEDS ORDERED: vancomycin/NS 1 GM ADD-VANTAGE 250 ML IV ONE (10:25)
[2017-10-20] MEDS: insulin Lispro (HumaLOG) vial - multi-dose SQ SCH ×2 (14:09→20:32)
[2017-10-20 15:54] LABS: HEMATOCRIT 23.4 % (35.0-45.0); HEMOGLOBIN 7.8 g/dl (12.0-16.0); MEAN CORPUSCULAR HEMOGLOBIN 29.2 PG (27.0-31.0); MEAN CORPUSCULAR HGB CONC 33.2 % (33.0-36.5); MEAN PLATELET VOLUME 8.5 FL (7.4-10.4); PLATELET COUNT 231 X10'3 (140-440); RED BLOOD COUNT 2.66 X10'6 (4.20-5.60)
[2017-10-20 15:57] LABS: WHITE BLOOD COUNT 27.3 X10'3 (4.5-11.0)
[2017-10-20] MEDS: lamoTRIgine 100mg tablet PO SCH (22:00)
[2017-10-20] MEDS: insulin glargine (Lantus) pen - multi-dose SQ SCH (22:09)
[2017-10-20 22:58] LABS: HEMATOCRIT 22.3 % (35.0-45.0); HEMOGLOBIN 7.6 g/dl (12.0-16.0); MEAN CORPUSCULAR HEMOGLOBIN 29.5 PG (27.0-31.0); MEAN CORPUSCULAR HGB CONC 33.9 % (33.0-36.5); MEAN CORPUSCULAR VOLUME 87.1 FL (78-98); PLATELET COUNT 238 X10'3 (140-440); RED BLOOD COUNT 2.56 X10'6 (4.20-5.60); RED CELL DISTRIBUTION WIDTH 18.5 % (11.5-14.5)
[2017-10-21] VITALS (27 sets, daily range): BP systolic 107–165; BP diastolic 58–93
[2017-10-21] MEDS: nystatin 500,000 unit/5ML UD oral suspension PO SCH ×4 (02:12→20:07)
[2017-10-21] MEDS: piperacillin/tazobactam inj. 2.25 GM in normal saline 50ml IV IV SCH ×4 (02:13→20:06)
[2017-10-21 05:26] LABS: BASOPHILS % (AUTO) 0 % (0-1); EOSINOPHILS # (AUTO) 0.3 X10'3 (0-0.9); EOSINOPHILS % (AUTO) 1.5 % (0-6); LYMPHOCYTES # (AUTO) 1.2 X10'3 (1.1-4.8); LYMPHOCYTES % (AUTO) 5.5 % (21-51); MEAN CORPUSCULAR HEMOGLOBIN 29.6 PG (27.0-31.0); MEAN CORPUSCULAR HGB CONC 33.4 % (33.0-36.5); MEAN CORPUSCULAR VOLUME 88.6 FL (78-98); MEAN PLATELET VOLUME 8.3 FL (7.4-10.4); MONOCYTES # (AUTO) 1.7 X10'3 (0-0.9); MONOCYTES % (AUTO) 7.3 % (2-12); NEUTROPHILS # (AUTO) 19.4 X10'3 (1.8-7.7); NEUTROPHILS % (AUTO) 85.7 % (42-75); PLATELET COUNT 224 X10'3 (140-440); RED BLOOD COUNT 2.42 X10'6 (4.20-5.60); RED CELL DISTRIBUTION WIDTH 18.4 % (11.5-14.5); WHITE BLOOD COUNT 22.7 X10'3 (4.5-11.0)
[2017-10-21 05:32] LABS: HEMATOCRIT 21.4 % (35.0-45.0); HEMOGLOBIN 7.2 g/dl (12.0-16.0)
[2017-10-21 05:42] LABS: INR 1.4 INR; PARTIAL THROMBOPLASTIN TIME 33 SECONDS (22-32)
[2017-10-21 05:53] LABS: ALANINE AMINOTRANSFERASE 8 U/L (12-78); ALBUMIN 1.3 G/DL (3.4-5.0); ALBUMIN/GLOBULIN RATIO 0.4 (1.1-1.5); ALKALINE PHOSPHATASE 122 IU/L (46-116); ANION GAP 10 (8-16); ASPARTATE AMINO TRANSFERASE 6 U/L (10-37); BILIRUBIN,TOTAL 0.5 MG/DL (0.1-1.0); BLOOD UREA NITROGEN 46 MG/DL (7-18); BUN/CREATININE RATIO 12.8 (6.6-38.0); CALCIUM 8.2 MG/DL (8.5-10.1); CHLORIDE 99 MMOL/L (99-107); CREATININE 3.58 MG/DL (0.40-0.90); GLUCOSE 115 MG/DL (70-104); MAGNESIUM 1.8 MG/DL (1.5-2.4); PHOSPHORUS 4.3 MG/DL (2.3-4.5); POTASSIUM 4.4 MMOL/L (3.5-5.1); SODIUM 136 MMOL/L (135-145); TOTAL PROTEIN 4.9 G/DL (6.4-8.2); eGFR 14 ML/MIN
[2017-10-21] MEDS: K, MAG and/or Phos replacement - Verify level? MC SCH (06:57)
[2017-10-21] MEDS: LOPERAMIDE 2 mg/10 ml oral solution UD PO PRN ×2 (07:44→17:44)
[2017-10-21] MEDS: furosemide 40mg tablet PO SCH (07:44)
[2017-10-21] MEDS: folic acid 1mg tablet PO SCH (07:45)
[2017-10-21] MEDS: lactobacillus rhamnosus 10,000 MMU CELLS/CAPSULE PO SCH ×2 (07:45→18:08)
[2017-10-21] MEDS: metolazone 2.5mg tablet PO SCH (07:45)
[2017-10-21] MEDS: venlafaxine 37.5mg tablet PO SCH ×2 (07:45→20:06)
[2017-10-21] MEDS: metoprolol tartrate 12.5mg (1/2 tablet) PO SCH ×2 (07:45→20:06)
[2017-10-21] MEDS: famotidine 20mg tablet NG SCH ×2 (07:45→20:06)
[2017-10-21] MEDS: fluconazole 100mg tablet PO SCH (07:45)
[2017-10-21] MEDS: folic acid/vitamin B complex w/vitamin C 0.8mg tablet PO SCH (07:46)
[2017-10-21] MEDS: pregabalin 75mg capsule PO SCH (07:46)
[2017-10-21] MEDS: sennosides/docusate sodium tablet PO SCH ×2 (07:46→20:00)
[2017-10-21] MEDS: sevelamer carbonate 800mg tablet PO SCH ×3 (07:46→18:08)
[2017-10-21] MEDS: NYSTATIN CREAM - 30GM TUBE TP SCH ×2 (07:47→20:08)
[2017-10-21] MEDS: insulin Lispro (HumaLOG) vial - multi-dose SQ SCH ×2 (08:28→13:16)
[2017-10-21] MEDS ORDERED: normal saline 1000ml 250 ML IV PRN (09:14)
[2017-10-21] MEDS ORDERED: heparin 1,000 units/ml 10ml inj IV ONE (09:15)
[2017-10-21] MEDS ORDERED: LIDOcaine 1% (10mg/ml) 2ml vial SQ ONE (09:15)
[2017-10-21] MEDS ORDERED: epoetin 20,000 units/ml inj IV ONE (09:15)
[2017-10-21] MEDS ORDERED: SODIUM THIOSULFATE 12.5 GM/50 ML IV PRN (10:10)
[2017-10-21] MEDS: NORMAL SALINE IV PRN (11:02)
[2017-10-21] MEDS: SODIUM THIOSULFATE IV PRN (11:02)
[2017-10-21] MEDS: lamoTRIgine 100mg tablet PO SCH (20:06)
[2017-10-21] MEDS: HYDROcodone/acetaminophen 10/325mg tab PO PRN (20:07)
[2017-10-21] MEDS: insulin glargine (Lantus) pen - multi-dose SQ SCH (20:12)
[2017-10-22] VITALS (18 sets, daily range): BP systolic 110–158; BP diastolic 62–87
[2017-10-22] MEDS: nystatin 500,000 unit/5ML UD oral suspension PO SCH ×4 (02:48→20:53)
[2017-10-22] MEDS: piperacillin/tazobactam inj. 2.25 GM in normal saline 50ml IV IV SCH ×4 (02:48→20:32)
[2017-10-22] MEDS: HYDROmorphone 1 mg/ml syringe IV PRN (02:48)
[2017-10-22 03:32] LABS: BASOPHILS % (AUTO) 0.2 % (0-1); EOSINOPHILS % (AUTO) 0 % (0-6); HEMATOCRIT 23.4 % (35.0-45.0); HEMOGLOBIN 7.9 g/dl (12.0-16.0); LYMPHOCYTES # (AUTO) 1.6 X10'3 (1.1-4.8); LYMPHOCYTES % (AUTO) 8.1 % (21-51); MEAN CORPUSCULAR HEMOGLOBIN 29.6 PG (27.0-31.0); MEAN CORPUSCULAR HGB CONC 33.7 % (33.0-36.5); MEAN CORPUSCULAR VOLUME 87.9 FL (78-98); MEAN PLATELET VOLUME 8.3 FL (7.4-10.4); MONOCYTES # (AUTO) 1.5 X10'3 (0-0.9); NEUTROPHILS # (AUTO) 16.1 X10'3 (1.8-7.7); NEUTROPHILS % (AUTO) 83.7 % (42-75); PLATELET COUNT 232 X10'3 (140-440); RED BLOOD COUNT 2.66 X10'6 (4.20-5.60); WHITE BLOOD COUNT 19.3 X10'3 (4.5-11.0)
[2017-10-22 03:45] LABS: INR 1.4 INR; PARTIAL THROMBOPLASTIN TIME 40 SECONDS (22-32); PROTHROMBIN TIME 14.1 SECONDS (9.0-12.0)
[2017-10-22 03:51] LABS: ALANINE AMINOTRANSFERASE 9 U/L (12-78); ALBUMIN 1.4 G/DL (3.4-5.0); ALBUMIN/GLOBULIN RATIO 0.4 (1.1-1.5); ALKALINE PHOSPHATASE 177 IU/L (46-116); ANION GAP 10 (8-16); ASPARTATE AMINO TRANSFERASE 6 U/L (10-37); BILIRUBIN,TOTAL 0.6 MG/DL (0.1-1.0); BLOOD UREA NITROGEN 26 MG/DL (7-18); BUN/CREATININE RATIO 10.4 (6.6-38.0); CALCIUM 8.1 MG/DL (8.5-10.1); CHLORIDE 100 MMOL/L (99-107); CREATININE 2.49 MG/DL (0.40-0.90); GLUCOSE 98 MG/DL (70-104); MAGNESIUM 1.8 MG/DL (1.5-2.4); POTASSIUM 3.9 MMOL/L (3.5-5.1); SODIUM 138 MMOL/L (135-145); TOTAL CARBON DIOXIDE 28.2 MMOL/L (24-32); TOTAL PROTEIN 5.2 G/DL (6.4-8.2); eGFR 22 ML/MIN
[2017-10-22] MEDS: lactobacillus rhamnosus 10,000 MMU CELLS/CAPSULE PO SCH ×2 (07:30→18:25)
[2017-10-22] MEDS: K, MAG and/or Phos replacement - Verify level? MC SCH (08:00)
[2017-10-22] MEDS: fluconazole 100mg tablet PO SCH (09:19)
[2017-10-22] MEDS: pregabalin 75mg capsule PO SCH (09:19)
[2017-10-22] MEDS: sennosides/docusate sodium tablet PO SCH ×2 (09:19→20:32)
[2017-10-22] MEDS: venlafaxine 37.5mg tablet PO SCH ×2 (09:19→20:32)
[2017-10-22] MEDS: furosemide 40mg tablet PO SCH (09:20)
[2017-10-22] MEDS: folic acid 1mg tablet PO SCH (09:20)
[2017-10-22] MEDS: metoprolol tartrate 12.5mg (1/2 tablet) PO SCH ×2 (09:20→20:33)
[2017-10-22] MEDS: famotidine 20mg tablet NG SCH ×2 (09:20→20:33)
[2017-10-22] MEDS: sevelamer carbonate 800mg tablet PO SCH ×3 (09:20→18:00)
[2017-10-22] MEDS: folic acid/vitamin B complex w/vitamin C 0.8mg tablet PO SCH (09:20)
[2017-10-22] MEDS: NYSTATIN CREAM - 30GM TUBE TP SCH ×2 (09:21→20:33)
[2017-10-22] MEDS: metolazone 2.5mg tablet PO SCH (09:21)
[2017-10-22] MEDS: insulin Lispro (HumaLOG) vial - multi-dose SQ SCH ×2 (09:35→19:12)
[2017-10-22] MEDS: lamoTRIgine 100mg tablet PO SCH (20:33)
[2017-10-22] MEDS: insulin glargine (Lantus) pen - multi-dose SQ SCH (20:51)
[2017-10-23] MEDS: piperacillin/tazobactam inj. 2.25 GM in normal saline 50ml IV IV SCH ×4 (02:13→20:42)
[2017-10-23] MEDS: nystatin 500,000 unit/5ML UD oral suspension PO SCH ×4 (02:13→20:42)
[2017-10-23 03:00] VITALS: BP 127/70
[2017-10-23 05:54] LABS: BASOPHILS % (AUTO) 0.1 % (0-1); EOSINOPHILS # (AUTO) 0.4 X10'3 (0-0.9); EOSINOPHILS % (AUTO) 2.3 % (0-6); HEMATOCRIT 22.2 % (35.0-45.0); HEMOGLOBIN 7.5 g/dl (12.0-16.0); LYMPHOCYTES # (AUTO) 1.2 X10'3 (1.1-4.8); MEAN CORPUSCULAR HEMOGLOBIN 29.8 PG (27.0-31.0); MEAN CORPUSCULAR HGB CONC 33.6 % (33.0-36.5); MEAN CORPUSCULAR VOLUME 88.5 FL (78-98); MEAN PLATELET VOLUME 7.9 FL (7.4-10.4); MONOCYTES # (AUTO) 1.5 X10'3 (0-0.9); MONOCYTES % (AUTO) 9.4 % (2-12); NEUTROPHILS # (AUTO) 12.6 X10'3 (1.8-7.7); NEUTROPHILS % (AUTO) 80.2 % (42-75); PLATELET COUNT 234 X10'3 (140-440); RED CELL DISTRIBUTION WIDTH 18.7 % (11.5-14.5); WHITE BLOOD COUNT 15.6 X10'3 (4.5-11.0)
[2017-10-23 06:00] VITALS: BP 148/82
[2017-10-23 06:18] LABS: INR 1.3 INR; PARTIAL THROMBOPLASTIN TIME 39 SECONDS (22-32)
[2017-10-23 06:30] LABS: ALANINE AMINOTRANSFERASE 11 U/L (12-78); ALBUMIN 1.3 G/DL (3.4-5.0); ALBUMIN/GLOBULIN RATIO 0.3 (1.1-1.5); ALKALINE PHOSPHATASE 228 IU/L (46-116); ANION GAP 13 (8-16); ASPARTATE AMINO TRANSFERASE 6 U/L (10-37); BILIRUBIN,TOTAL 0.6 MG/DL (0.1-1.0); BLOOD UREA NITROGEN 35 MG/DL (7-18); BUN/CREATININE RATIO 10.1 (6.6-38.0); CALCIUM 8.3 MG/DL (8.5-10.1); CHLORIDE 97 MMOL/L (99-107); CREATININE 3.48 MG/DL (0.40-0.90); GLUCOSE 84 MG/DL (70-104); MAGNESIUM 1.8 MG/DL (1.5-2.4); PHOSPHORUS 3.7 MG/DL (2.3-4.5); POTASSIUM 4.1 MMOL/L (3.5-5.1); SODIUM 136 MMOL/L (135-145); TOTAL CARBON DIOXIDE 25.8 MMOL/L (24-32); TOTAL PROTEIN 5.3 G/DL (6.4-8.2); eGFR 15 ML/MIN
[2017-10-23] MEDS: K, MAG and/or Phos replacement - Verify level? MC SCH (08:00)
[2017-10-23] MEDS ORDERED: methylnaltrexone br 12mg/0.6ml inj***SubQ only SQ SCH (08:00)
[2017-10-23] MEDS: sevelamer carbonate 800mg tablet PO SCH ×3 (08:04→17:57)
[2017-10-23] MEDS: venlafaxine 37.5mg tablet PO SCH ×2 (08:05→20:43)
[2017-10-23] MEDS: pregabalin 75mg capsule PO SCH (08:05)
[2017-10-23] MEDS: folic acid/vitamin B complex w/vitamin C 0.8mg tablet PO SCH (08:05)
[2017-10-23] MEDS: famotidine 20mg tablet NG SCH ×2 (08:05→20:42)
[2017-10-23] MEDS: folic acid 1mg tablet PO SCH (08:05)
[2017-10-23] MEDS: lactobacillus rhamnosus 10,000 MMU CELLS/CAPSULE PO SCH ×2 (08:05→17:57)
[2017-10-23] MEDS: NYSTATIN CREAM - 30GM TUBE TP SCH ×2 (08:05→20:43)
[2017-10-23] MEDS: furosemide 40mg tablet PO SCH (08:05)
[2017-10-23] MEDS: metoprolol tartrate 12.5mg (1/2 tablet) PO SCH ×2 (08:05→20:42)
[2017-10-23] MEDS: sennosides/docusate sodium tablet PO SCH ×2 (08:05→20:00)
[2017-10-23] MEDS: fluconazole 100mg tablet PO SCH (08:06)
[2017-10-23 08:46] LABS: ANISOCYTOSIS 2+; PLATELET ESTIMATE NORMAL; POLYCHROMASIA 1+
[2017-10-23] MEDS: insulin Lispro (HumaLOG) vial - multi-dose SQ SCH ×2 (09:16→18:52)
[2017-10-23] MEDS ORDERED: epoetin 20,000 units/ml inj IV ONE (09:20)
[2017-10-23] MEDS ORDERED: heparin 1,000 units/ml 10ml inj IV ONE (09:20)
[2017-10-23] MEDS ORDERED: normal saline 1000ml 250 ML IV PRN (09:20)
[2017-10-23] MEDS ORDERED: LIDOcaine 1% (10mg/ml) 2ml vial SQ ONE (09:20)
[2017-10-23] MEDS: NORMAL SALINE IV PRN (10:05)
[2017-10-23] MEDS: SODIUM THIOSULFATE IV PRN (10:05)
[2017-10-23 11:00] VITALS: BP 143/69
[2017-10-23] MEDS: HYDROcodone/acetaminophen 10/325mg tab PO PRN (11:02)
[2017-10-23] MEDS ORDERED: FLUC100T9 PO (14:27)
[2017-10-23] MEDS ORDERED: [UNRECOGNIZED DRUG - CODE] IV (14:27)
[2017-10-23 15:00] VITALS: BP 155/76
[2017-10-23 19:00] VITALS: BP 140/74
[2017-10-23] MEDS: lamoTRIgine 100mg tablet PO SCH (20:42)
[2017-10-23] MEDS: insulin glargine (Lantus) pen - multi-dose SQ SCH (20:53)
== END 2017-10-23 21:18 | DRG 393 ==
LOC: ER 07:26 → ICU 2S 10:14 → CMPBEDREQ 10-20 19:53 → PCU 3S 10-22 16:20
PROVIDERS: ADMIT Internal Medicine Critical Care Medicine; ATTEND Internal Medicine Critical Care Medicine
PROC: 30233N1 Transfusion of Nonautologous Red Blood Cells into Peripheral Vein, Percutaneous Approach (ICD-10-PCS; principal; 2017-10-18)
PROC: BW211ZZ Computerized Tomography (CT Scan) of Abdomen and Pelvis using Low Osmolar Contrast (ICD-10-PCS; 2017-10-18)
PROC: 0D9670Z Drainage of Stomach with Drainage Device, Via Natural or Artificial Opening (ICD-10-PCS; 2017-10-18)
PROC: 0DJ08ZZ Inspection of Upper Intestinal Tract, Via Natural or Artificial Opening Endoscopic (ICD-10-PCS; 2017-10-18)
PROC: CD271ZZ Tomographic (Tomo) Nuclear Medicine Imaging of Gastrointestinal Tract using Technetium 99m (Tc-99m) (ICD-10-PCS; 2017-10-19)
PROC: 5A1D70Z Performance of Urinary Filtration, Intermittent, Less than 6 Hours Per Day (ICD-10-PCS; 2017-10-19)
PROC: 0W3P8ZZ Control Bleeding in Gastrointestinal Tract, Via Natural or Artificial Opening Endoscopic (ICD-10-PCS; 2017-10-19)
PROC: 0DBP8ZX Excision of Rectum, Via Natural or Artificial Opening Endoscopic, Diagnostic (ICD-10-PCS; 2017-10-19)
PROC: 30233N1 Transfusion of Nonautologous Red Blood Cells into Peripheral Vein, Percutaneous Approach (ICD-10-PCS; 2017-10-20)
PROC: 30233N1 Transfusion of Nonautologous Red Blood Cells into Peripheral Vein, Percutaneous Approach (ICD-10-PCS; 2017-10-21)
PROC: 5A1D70Z Performance of Urinary Filtration, Intermittent, Less than 6 Hours Per Day (ICD-10-PCS; 2017-10-21)
PROC: 5A1D70Z Performance of Urinary Filtration, Intermittent, Less than 6 Hours Per Day (ICD-10-PCS; 2017-10-23)
DX: K62.6 Ulcer of anus and rectum (principal); N18.6 End stage renal disease; K92.1 Melena; Z68.42 Body mass index [BMI] 45.0-49.9, adult; I12.0 Hypertensive chronic kidney disease with stage 5 chronic kidney disease or end stage renal disease; E66.9 Obesity, unspecified; D64.9 Anemia, unspecified; K64.1 Second degree hemorrhoids; E83.59 Other disorders of calcium metabolism; E10.22 Type 1 diabetes mellitus with diabetic chronic kidney disease; Z99.2 Dependence on renal dialysis; Z88.5 Allergy status to narcotic agent; Z88.8 Allergy status to other drugs, medicaments and biological substances; Z79.899 Other long term (current) drug therapy; Z79.01 Long term (current) use of anticoagulants
CPT/HCPCS: 36415; 45380; 45382; 71045; 74018; 74177; 78278; 80053; 81001; 82948; 83036; 83605; 83735; 84100; 84132; 84145; 84443; 85025; 85027; 85384; 85610; 85730; 86885; 86900; 86901; 86920; 87040; 87070; 87075; 87077; 87088; 87102; 87186; 88305; 93005; 94760; 96365; 96366; 96375; 99291; A4353; A4620; A6213; A6250; A6253; A6255; A6402; A6449; A9560; C1758; C9113; C9132; G0257; G0500; J0885; J1170; J1642; J1644; J1815; J2250; J2543; J2765; J3010; J3370; J3480; J3490; J7030; P9016; Q9967